=== PATIENT | female | born 1930 | race Asian ===

== ENCOUNTER 2016-10-15 18:23 | Inpatient (IN) | payer MEDICARE, OTHER ==
[~2016-10-15] VITALS: Ht 160 cm; Wt 41.3 kg
[~2016-10-15 18:23] MED LIST: GABAPENTIN300 MG ORAL; MECLIZINE HCL25 MG ORAL; VESICARE5 MG ORAL
[2016-10-15] MEDS ORDERED: COZAAR25 MG ORAL (19:14)
[2016-10-15] MEDS ORDERED: TRAMADOL HCL50 MG ORAL (19:14)
[2016-10-15] MEDS ORDERED: BENTYL10 MG ORAL (19:14)
[2016-10-15] MEDS ORDERED: ATORVASTATIN CA10 MG ORAL (19:14)
[2016-10-15] MEDS ORDERED: LYRICA75 M1 ORAL (19:14)
[2016-10-15] MEDS ORDERED: GABAPENTIN100 MG ORAL (19:14)
[2016-10-15] MEDS ORDERED: NORVASC2.5 MG ORAL (19:14)
[2016-10-15] MEDS ORDERED: ARICEPT5 MG ORAL (19:14)
[2016-10-15 19:24] LABS: RED BLOOD COUNT 3.12 M/UL (4.20-5.40); WHITE BLOOD COUNT 4.8 K/UL (4.8-10.8)
[2016-10-15 19:25] LABS: BASOPHILS % (AUTO) 1.7 % (0.0-2.0); LYMPHOCYTES % (AUTO) 33.7 % (20.0-45.0); MEAN CORPUSCULAR HEMOGLOBIN 32.5 PG (27.0-31.0); MEAN CORPUSCULAR HGB CONC 32.2 G/DL (32.0-36.0); MEAN CORPUSCULAR VOLUME 101 FL (80-99); MEAN PLATELET VOLUME 6.6 FL (6.5-10.1); MONOCYTES % (AUTO) 8.3 % (1.0-10.0); NEUTROPHILS % (AUTO) 55.3 % (45.0-75.0); PLATELET COUNT 201 K/UL (150-450); RED CELL DISTRIBUTION WIDTH 13.3 % (11.6-14.8)
[2016-10-15 20:00] LABS: TROPONIN I < 0.30 ng/mL (<=0.30)
[2016-10-15 20:03] LABS: ALANINE AMINOTRANSFERASE 22 U/L (3-33); ALBUMIN/GLOBULIN RATIO 1.9 (1.0-2.7); ANION GAP 15 (5-15); ASPARTATE AMINO TRANSFERASE 35 U/L (5-40); CARBON DIOXIDE 28 mEQ/L (20-30); CHLORIDE 102 mEQ/L (98-107); CREATININE 1.6 mg/dL (0.5-0.9); HEMOLYSIS 33; POTASSIUM 4.2 mEQ/L (3.4-4.9); SODIUM 145 mEQ/L (135-145); TOTAL PROTEIN 6.4 g/dL (6.6-8.7)
[2016-10-15 20:08] VITALS: BP 183/73
[2016-10-15 20:14] LABS: CKMB 2.5 ng/mL (< 3.8)
[2016-10-15 20:36] LABS: APPEARANCE,URINE CLEAR; KETONES,URINE NEGATIVE (NEGATIVE); LEUKOCYTE ESTERASE ,URINE NEGATIVE (NEGATIVE); NITRITE,URINE NEGATIVE (NEGATIVE); PH,URINE 8 (4.5-8.0); PROTEIN,URINE NEGATIVE (NEGATIVE); UROBILINOGEN,URINE NORMAL MG/DL (0.0-1.0)
[2016-10-15 22:16] VITALS: BP 160/72
--- NOTE | 2016-10-15 22:25 | Emergency Room Report ---
History of Present Illness General Chief Complaint: Hypertension Source: Patient, EMS Present Illness HPI Patient is an 86-year-old female who presented after having a increased headache and generalized weakness. Patient denied any recent trauma. She reported having increased facial pain. Patient reported having some cough which has not been improving. Patient had history of hypertension. She had prior brain surgery many years ago. Allergies: Coded Allergies: NO KNOWN DRUG ALLERGIES (Unverified Allergy, Unknown, 04/03/15) Patient History Past Medical History: see triage record Reviewed Nursing Documentation: PMH: Agreed, PSxH: Agreed Nursing Documentation-PMH Past Medical History: No History, Except For Hx Hypertension: Yes Hx Diabetes: No - NEUROPATHY Hx Cancer: No Hx Neurological Problems: No - Brain Surgery in 1999 Hx Dizziness: Yes Hx Neurologic Surgery: Yes - brain tumer 20 years ago Review of Systems All Other Systems: negative except mentioned in HPI Physical Exam Vital Signs Date Time Temp Pulse Resp B/P Pulse Ox O2 Delivery O2 Flow Rate FiO2 10/15/16 18:13 98.8 90 20 180/90 100 Room Air Sp02 EP Interpretation: reviewed, normal General Appearance: normal inspection, well appearing, no apparent distress, alert, GCS 15, thin, Chronically Ill Head: atraumatic ENT: normal ENT inspection, hearing grossly normal, normal voice Neck: normal inspection, full range of motion, supple, no bony tend Respiratory: normal inspection, lungs clear, normal breath sounds, no respiratory distress, no retraction, no wheezing Cardiovascular #1: regular rate, rhythm, no edema Gastrointestinal: normal inspection, normal bowel sounds, non tender, soft, no guarding, no hernia Genitourinary: no CVA tenderness Musculoskeletal: normal inspection, back normal, normal range of motion Neurologic: normal inspection, alert, oriented x3, responsive, imaging aide III-XII nml as tested, speech normal Psychiatric: normal inspection, judgement/insight normal, mood/affect normal Skin: normal inspection, normal color, no rash Medical Decision Making Diagnostic Impression: Primary Impression: Generalized weakness Additional Impression: Hypertension ER Course Patient presented for generalized weakness. Differential diagnosis included was not limited to anemia, urinary tract infection, electrolyte abnormality, hypothyroidism, myocardial infarction, myasthenia gravis, dehydration, among others. Because of complexity of patient's case laboratory testing and imaging studies were ordered. Chest x-ray one view interpreted by me showed normal cardiac size without evident infiltrate. There is some aortic calcifications noted. CT the head read by radiology showed post surgical changes without evident acute stroke or hemorrhage.The patient was noted to have continued generalized weakness. Patient was given Lasix. Dr. Trae Gregg was contacted for inpatient management Labs Test 10/15/16 19:16 10/15/16 20:13 White Blood Count 4.8 K/UL (4.8-10.8) Red Blood Count 3.12 M/UL (4.20-5.40) Hemoglobin 10.1 G/DL (12.0-16.0) Hematocrit 31.4 % (37.0-47.0) Mean Corpuscular Volume 101 FL (80-99) Mean Corpuscular Hemoglobin 32.5 PG (27.0-31.0) Mean Corpuscular Hemoglobin Concent 32.2 G/DL (32.0-36.0) Red Cell Distribution Width 13.3 % (11.6-14.8) Platelet Count 201 K/UL (150-450) Mean Platelet Volume 6.6 FL (6.5-10.1) Neutrophils (%) (Auto) 55.3 % (45.0-75.0) Lymphocytes (%) (Auto) 33.7 % (20.0-45.0) Monocytes (%) (Auto) 8.3 % (1.0-10.0) Eosinophils (%) (Auto) 1.0 % (0.0-3.0) Basophils (%) (Auto) 1.7 % (0.0-2.0) Sodium Level 145 mEQ/L (135-145) Potassium Level 4.2 mEQ/L (3.4-4.9) Chloride Level 102 mEQ/L (98-107) Carbon Dioxide Level 28 mEQ/L (20-30) Anion Gap 15 (5-15) Blood Urea Nitrogen 29 mg/dL (7-23) Creatinine 1.6 mg/dL (0.5-0.9) Estimat Glomerular Filtration Rate mL/min (>60) Glucose Level 96 mg/dL (74-106) Lactic Acid Level 1.00 mmol/L (0.66-2.22) Calcium Level 9.0 mg/dL (8.6-10.2) Total Bilirubin < 0.2 mg/dL (0.0-1.2) Aspartate Amino Transf (AST/SGOT) 35 U/L (5-40) Alanine Aminotransferase (ALT/SGPT) 22 U/L (3-33) Alkaline Phosphatase 97 U/L (35-104) Total Creatine Kinase 156 U/L (26-140) Creatine Kinase MB 2.5 ng/mL (< 3.8) Creatine Kinase MB Relative Index 1.6 Troponin I < 0.30 ng/mL (<=0.30) Pro-B-Type Natriuretic Peptide 751 pg/mL (0-450) Total Protein 6.4 g/dL (6.6-8.7) Albumin 4.2 g/dL (3.5-5.2) Globulin 2.2 g/dL Albumin/Globulin Ratio 1.9 (1.0-2.7) Urine Color Pale yellow Urine Appearance Clear Urine pH 8 (4.5-8.0) Urine Specific [place] 1.010 (1.005-1.035) Urine Protein Negative (NEGATIVE) Urine Glucose (UA) Negative (NEGATIVE) Urine Ketones Negative (NEGATIVE) Urine Occult Blood Negative (NEGATIVE) Urine Nitrite Negative (NEGATIVE) Urine Bilirubin Negative (NEGATIVE) Urine Urobilinogen Normal MG/DL (0.0-1.0) Urine Leukocyte Esterase Negative (NEGATIVE) EKG Diagnostic Results Rate: normal Rhythm: NSR ST Segments: no acute changes Rhythm Strip Diag. Results EP Interpretation: yes Rhythm: NSR, no PVC's, no ectopy Chest X-Ray Diagnostic Results EP Interpretation: Yes Findings: no consolidation, no effusion, no pneumothorax, no acute cardiopulmonary disease Number of Views: 1 Last Vital Signs Date Time Temp Pulse Resp B/P Pulse Ox O2 Delivery O2 Flow Rate FiO2 10/15/16 20:08 68 13 183/73 100 Room Air 10/15/16 18:13 98.8 Status: unchanged Disposition: DISC/XFER TO A [facility] Condition: Serious Referrals: NON PHYSICIAN (PCP) Feliciano Brown Oct 15, 2016 22:25
[2016-10-15] MEDS ORDERED: Morphine Sulfate 2mg/ml Inj IVP PRN (23:00)
[2016-10-15] MEDS ORDERED: Promethazine/Codeine 5ml UD ORAL PRN (23:00)
[2016-10-15] MEDS ORDERED: Mylanta II UD 30ml ORAL PRN (23:00)
[2016-10-15] MEDS ORDERED: DuoNeb 0.5-3(2.5)mg/3ml neb HHN PRN (23:00)
[2016-10-15] MEDS ORDERED: LORazepam Inj 2mg/ml 1ml IV PRN (23:00)
[2016-10-15] MEDS ORDERED: Nitroglycerin Subl 0.4mg tab (Bottle Of 25) SL PRN (23:00)
[2016-10-15] MEDS ORDERED: Miralax 17gm pkt ORAL PRN (23:00)
[2016-10-15] MEDS: D5 1/2NS 1,000 ML IV SCH (23:33)
[2016-10-15 23:40] VITALS: BP 133/55
[2016-10-16] VITALS (11 sets, daily range): BP systolic 99–167; BP diastolic 42–89
[2016-10-16] MEDS: Meclizine 25mg tab ORAL SCH ×3 (02:50→22:02)
[2016-10-16 06:08] LABS: BASOPHILS % (AUTO) 1.4 % (0.0-2.0); EOSINOPHILS % (AUTO) 1.2 % (0.0-3.0); MEAN CORPUSCULAR HEMOGLOBIN 31.8 PG (27.0-31.0); MEAN CORPUSCULAR HGB CONC 31.6 G/DL (32.0-36.0); MEAN CORPUSCULAR VOLUME 100 FL (80-99); MEAN PLATELET VOLUME 6.8 FL (6.5-10.1); MONOCYTES % (AUTO) 10.4 % (1.0-10.0); PLATELET COUNT 224 K/UL (150-450); RED BLOOD COUNT 3.48 M/UL (4.20-5.40); WHITE BLOOD COUNT 4.2 K/UL (4.8-10.8)
[2016-10-16 06:18] LABS: INR 0.9 (0.9-1.1); PROTHROMBIN TIME 9.6 SEC (9.30-11.50)
[2016-10-16 06:31] LABS: ALANINE AMINOTRANSFERASE 20 U/L (3-33); ALBUMIN/GLOBULIN RATIO 1.8 (1.0-2.7); ANION GAP 14 (5-15); ASPARTATE AMINO TRANSFERASE 29 U/L (5-40); CARBON DIOXIDE 30 mEQ/L (20-30); CHLORIDE 98 mEQ/L (98-107); CHOLESTEROL 207 mg/dL (< 200); CHOLESTEROL/HDL RATIO 2.1 (3.3-4.4); CREATININE 1.3 mg/dL (0.5-0.9); HEMOLYSIS 4; LDL CHOLESTEROL (CALC.) 95 mg/dL (60-99); POTASSIUM 3.3 mEQ/L (3.4-4.9); SODIUM 142 mEQ/L (135-145); TOTAL PROTEIN 6.8 g/dL (6.6-8.7)
--- NOTE | 2016-10-16 09:50 | Diagnostic Imaging Report ---
Indication: Headache, high blood pressure Technique: spiral acquisitions obtained through the brain. Angled axial and coronal 5 x 5 mm slices were reconstructed. No IV contrast utilized. Radiation dose was minimized using automated exposure control Total dose length product 1238 mGycm. CTDIvol(s) 70 mGy Comparison: 04/03/2015 FINDINGS: No acute hemorrhage or edema. No mass effect or midline shift. There is age-related enlargement of the ventricles and extra axial CSF spaces. There is periventricular deep white matter ischemic change. There is a right temporal craniotomy/craniectomy defect. Some encephalomalacia of the left temporal tip is seen deep to this. Normal florez-white differentiation. There is evidence of prior bilateral cataract surgery. Visualized sinuses are unremarkable. There is no significant change from previous exam IMPRESSION: Chronic and age-related changes. Negative for acute intracranial bleed or mass effect Right temporal craniotomy/craniectomy with underlying encephalomalacia. Correlate with surgical history This agrees with the preliminary interpretation provided overnight by Dr. Fournier The CT scanner at [facility] is accredited by the [employer] and the scans are performed using protocols designed to limit radiation exposure to as low as reasonably achievable to attain images of sufficient resolution adequate for diagnostic evaluation
--- NOTE | 2016-10-16 10:08 | Diagnostic Imaging Report ---
Indication: SOB Technique: One view of the chest Comparison: 04/03/2015 Findings: No acute infiltrates, effusions, or congestion. Tortuous calcified aorta. Normal heart size. Upper mediastinum unremarkable. No significant change Impression: No acute process.
[2016-10-16] MEDS ORDERED: Heparin 5000 units/ml inj ONE (10:16)
[2016-10-16] MEDS ORDERED: Meclizine 25mg tab ONE (10:16)
[2016-10-16] MEDS: Heparin 5000 units/ml inj SUBQ SCH ×2 (10:26→22:04)
--- NOTE | 2016-10-16 12:37 | Consultation ---
Consult Note Consult Note NEUROLOGY CONSULTATION: Full note dictated # Ms. Maurizio Johnson is an 86 year old right handed Mongolian lady who was admitted to the hospital for headaches, weakness, numbness in the feet, and an elevated BP. ON EXAM: C-PS/Trap spasm. Problems with orientation, memory, VSF, HCF Left VII central Left hemiparesis. Globally decreased reflexes with left brisker. 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 Numbness in feet unexplained. REC: Flexeril 10 mg q HS x 5-7 days. BP control W/U for treatable neuropathy Mobilize Judy Esquivel M.D., M.S.P.Kellee. JUDY ESQUIVEL Oct 16, 2016 12:37
--- NOTE | 2016-10-16 17:58 | Consultation ---
DATE OF CONSULTATION: 10/16/2016 NEUROLOGY CONSULTATION CONSULTING PHYSICIAN: Gato Esquivel M.D. REQUESTING PHYSICIAN: Trae Gregg M.D. HISTORY: Ms. Mauriizo Johnson is an 86-year-old, right-handed, [place]ian lady, who does have a past history of hypertension and a brain abscess that had to be taken care of surgically numerous years ago in [place]. She was functioning relatively well until a few months ago when she started to have daily headaches. The headaches are predominantly in the bifrontal area and sometimes they spread to the entire scalp, they occur anytime of the day but are more common in the later part of the day then beginning of the day. She denies any associated neurological symptoms with the headaches. For the last few days, she has also been feeling generally weak. In addition, she has been complaining of numbness in the feet. She was thus brought into the [facility] emergency room and was noted to have an elevated blood pressure and has been admitted for further management. PAST MEDICAL HISTORY: Significant for brain abscess numerous years ago that was treated surgically, high blood pressure for many years. FAMILY HISTORY: Nothing significant. PERSONAL HISTORY: Home: She lives with family. 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 Habits: She denies use of alcohol, tobacco, or illicit drugs. PRESENT MEDICATIONS: Include amlodipine, meclizine, heparin for DVT prophylaxis, DuoNeb, Tylenol p.r.n., morphine as needed, MiraLAX as needed, Zofran as needed, Ativan as needed, Restoril as needed, nitroglycerin as needed, clonidine as needed, Phenergan and codeine oral cough syrup as needed, Lasix which she got a single dose. PHYSICAL EXAMINATION: GENERAL: She is a well-developed, lean, Bulgarian lady, lying in bed, in no acute distress. VITAL SIGNS: Pulse 60 per minute, blood pressure 159/70 mmHg, respirations 16 per minute, temperature 97.7 degrees Fahrenheit. HEAD: Head normocephalic with right frontotemporal craniotomy scar. NECK: No neck rigidity was observed. She did have a grade 1/4 cervical paraspinal muscle and trapezius spasm. EENT: Examination benign except for bilateral pseudophakia. NEUROLOGICAL EXAMINATION: MENTAL STATUS EXAMINATION: She was alert and awake. She was oriented to self, hospital, and October. She did not know the name of the hospital, date, or year. She was able to recall 3/3 words immediately after 1 minute and after 3 minutes. She was able to remember presidents Trump and Obama but could not remember presidents prior to that. Her mathematical skills were impaired. Her visuospatial function was also impaired. SPEECH: She had no dysarthria. LANGUAGE: She had no aphasia in Bulgarian as per the nurse who was interpreting for her. CRANIAL NERVE EXAMINATION: II: Visual garvey were intact to confrontation testing. III, IV & : The external ocular movements were full. Pupils were 5 x 6 millimeters and irregular and did not react to light. V: She had normal facial sensations and the temporales, masseters, and pterygoids functioned normally. VII: She had left VII central facial paresis. VIII: She was able to hear well bilaterally and had no nystagmus. IX: The palate moved symmetrically on phonation. X: She had no hoarseness of voice. XI: The sternocleidomastoids and trapezii functioned normally. XII: The tongue was in the midline without any fasciculations or atrophy. MOTOR SYSTEM: The tone was normal in all four extremities. Examination of muscle mass revealed no focal wasting. Examination of power revealed grade 5/5 power except for grade 4+/5 power in the left finger extensors and iliopsoas. SENSORY EXAMINATION: She had intact sensations to pinprick, light touch, and graphesthesia however she complained of subjective intense sensation on her left side. REFLEXES: Trace+ on the right and 1+ on the left in the biceps, triceps, brachioradialis, and knees and 0 at both ankles. The plantar responses were flexor bilaterally. STANCE: She stood up with support. GAIT: She took a few steps with support. DIAGNOSTIC IMPRESSION: 1. Ms. Maurizio Johnson is an 86-year-old, right-handed, Bulgarian lady, who does have a past history of a brain abscess that was treated surgically numerous years ago, high blood pressure, and right hip fracture that was treated with surgical repair, who for the last 2 months has been having frequent headaches and for the last few days has been feeling unwell and ill. She was thus hospitalized and was discovered to have a significantly elevated blood pressure but pressure is now better controlled. 2. On neurological examination, at this time, she does have problems with orientation, recent and remote memory, visuospatial function, and higher cognitive function. She also has mild left hemiparesis involving the face, upper and lower extremities. The deep tendon reflexes are globally diminished though brisker on the left side than on the right. She in addition has cervical paraspinal muscle and trapezius spasm. 3. The patient's history and neurological examination are most compatible with muscle contraction Headaches. 4. The numbness in her feet is unexplained at this point in time, but may be related to a neuropathic process as she does demonstrate globally diminished reflexes. 5. The patient's generalized weakness is also still unexplained at this point in time. RECOMMENDATIONS: 1. The patient should be worked up thoroughly for treatable causes of neuropathy and weakness with CBC, chemistry panel, B12 level, folate level, vitamin D level, RPR, glycohemoglobin, Westergren sedimentation rate, TSH, and hemoglobin A1c. 2. She will be started on Flexeril 10 mg at bedtime for the next few nights to help her with the muscle contraction headaches. 3. The patient's blood pressure should be brought down into the physiological range. 4. Depending on how the patient favors over the next day or so further recommendations will be given. Thank you for entrusting me with the care of Ms. Johnson. I shall follow her with you. Gato Esquivel M.D., M.S.P.H. DR: Ras JOB#: [id number] [facility] HOSPITALAlesia
[2016-10-16] MEDS: Cyclobenzaprine 10mg Tab ORAL SCH (22:05)
[2016-10-16] MEDS: D5 1/2NS 1,000 ML IV SCH (22:17)
--- NOTE | 2016-10-16 22:27 | Consultation ---
History of Present Illness General Date patient seen: Oct 16, 2016 Chief Complaint: headache elevated blood pressure Reason for Consultation: accelerated hypertension poorly controlled Present Illness HPI 86 yo female with pmhx HTN and heart disease, craniotomy presenting to [facility] with co headache. While being evaluated in the ER patient was found to be hypertensive with systolic recorded at once as high 160 systolically. I was asked to consult on the case to help better manage and control this patients blood pressure from internal medicine perspective. The patient will be given clonidine 0.1 mg q 6 hour prn systolic BP more than 160 immediately and a full evaluation is pending. Neurology to evaluate to investigate the patients complaint of numbness and tingling feelings in the extremities bilaterally. No complaint of focality or seizure or syncope. Speech not slurred no complaints of unilateral facial drooping or one sided weakness. Allergies: Coded Allergies: NO KNOWN DRUG ALLERGIES (Unverified Allergy, Unknown, 04/03/15) Medication History Scheduled Amlodipine Besylate* (Amlodipine Besylate*), 5 MG ORAL DAILY, (Reported) Atorvastatin Calcium* (Lipitor*), Unknown Dose ORAL BEDTIME, (Reported) Atorvastatin Calcium* (Atorvastatin Calcium*), 10 MG ORAL BEDTIME, (Reported) Clonidine Hcl (Clonidine Hcl), 0.1 MG PO EVERY 4 HOURS, (Reported) Ergocalciferol (Vitamin D2)* (Vitamin D*), 50,000 UNIT ORAL ONCE A WEEK Heparin Sod (Porcine) (Heparin Sodium*), 5,000 UNITS SUBQ EVERY 12 HOURS, ( Reported) Meclizine Hcl (Meclizine Hcl), 25 MG ORAL THREE TIMES A DAY, (Reported) Morphine Sulfate/0.9% NaCl/Pf (Morphine 2 mg/2 ml-0.9% NaCl), 2 MG IV EVERY 4 HOURS, (Reported) Polyethylene Glycol 3350* (Miralax*), 17 GM ORAL DAILY, (Reported) Temazepam (Temazepam*), 15 MG ORAL BEDTIME, (Reported) Scheduled PRN Acetaminophen* (Tylenol Extra Strength*), 650 MG ORAL EVERY 4 HOURS PRN for Fever/Headache/Mild Pain, (Reported) Amlodipine Besylate* (Amlodipine Besylate*), 5 MG ORAL DAILY PRN for For High Blood Pressure, (Reported) Codeine/Promethazine Hcl* (Promethazine-Codeine Syrup*), 5 ML ORAL Q4H PRN for For Cough, (Reported) Cyclobenzaprine Hcl* (Flexeril*), 10 MG ORAL BEDTIME PRN for Insomnia, (Reported ) Heparin Sodium,Porcine/Pf (Heparin Sod 5,000 Unit/ 0.5 Ml), 5,000 UNIT SQ for micheline, (Reported) Ipratropium [place] 0.5MG/2.5ML (Ipratropium [place] 0.5MG/2.5ML), 0.5 MG HHN Q4HR PRN for Shortness of Breath, (Reported) Ondansetron (Zofran), 4 MG ORAL Q6H PRN for Nausea & Vomiting, (Reported) Miscellaneous Medications Acetaminophen (Acetaminophen), 325 MG PO, (Reported) Al Hydroxide/mg Hydroxide (Mag-Al Plus Suspension), 30 ML ORAL, (Reported) Clonidine HCl (Clonidine HCl), 0.1 MG GT, (Reported) Nitroglycerin (Nitroglycerin), 0.4 MG SL, (Reported) Patient History Healthcare decision maker Resuscitation status Advanced Directive on File Review of Systems Constitutional: Reports: malaise, weakness Neurological: Reports: headache, tingling Physical Exam General Appearance: no apparent distress Lines, tubes and drains: peripheral HEENT: anicteric, PERRL Neck: non-tender, normal alignment, supple Respiratory/Chest: no respiratory distress, no accessory muscle use Cardiovascular/Chest: normal rate, regular rhythm Abdomen: normal bowel sounds, non tender, soft, no organomegaly Genitourinary/Rectal: normal genital exam, normal rectal exam Extremities: normal range of motion, non-tender Skin Exam: normal pigmentation, warm/dry 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 normal, responsive, sensory deficit, disoriented Last 24 Hour Vital Signs Date Time Temp Pulse Resp B/P Pulse Ox O2 Delivery O2 Flow Rate FiO2 10/16/16 22:14 98.2 63 15 99/42 98 Room Air 10/16/16 18:51 60 15 134/59 99 Room Air 10/16/16 16:04 55 15 138/61 99 Room Air 10/16/16 13:11 70 15 143/58 99 Room Air 10/16/16 11:17 60 15 159/70 94 Room Air 10/16/16 10:24 59 159/70 10/16/16 09:30 98.3 61 16 166/85 97 Room Air 10/16/16 07:15 97.7 67 15 163/77 94 Room Air 10/16/16 07:15 67 15 Room Air 10/16/16 06:30 56 15 167/80 97 Room Air 10/16/16 04:30 98.4 64 12 163/89 100 Room Air 10/16/16 01:50 66 16 145/60 100 Room Air 10/15/16 23:40 98.0 66 17 133/55 99 Room Air Intake and Output 10/15/16 10/16/16 19:00 07:00 Output Total 50 ml Balance -50 ml Output Urine Total 50 ml # Voids 4 Laboratory Tests Test 10/16/16 05:50 White Blood Count 4.2 K/UL (4.8-10.8) L Red Blood Count 3.48 M/UL (4.20-5.40) L Hemoglobin 11.1 G/DL (12.0-16.0) L Hematocrit 35.0 % (37.0-47.0) L Mean Corpuscular Volume 100 FL (80-99) H Mean Corpuscular Hemoglobin 31.8 PG (27.0-31.0) H Mean Corpuscular Hemoglobin Concent 31.6 G/DL (32.0-36.0) L Red Cell Distribution Width 13.0 % (11.6-14.8) Platelet Count 224 K/UL (150-450) Mean Platelet Volume 6.8 FL (6.5-10.1) Neutrophils (%) (Auto) 61.0 % (45.0-75.0) Lymphocytes (%) (Auto) 26.0 % (20.0-45.0) Monocytes (%) (Auto) 10.4 % (1.0-10.0) H Eosinophils (%) (Auto) 1.2 % (0.0-3.0) Basophils (%) (Auto) 1.4 % (0.0-2.0) Prothrombin Time 9.6 SEC (9.30-11.50) Prothromb Time International Ratio 0.9 (0.9-1.1) Activated Partial Thromboplast Time 24 SEC (23-33) Sodium Level 142 mEQ/L (135-145) Potassium Level 3.3 mEQ/L (3.4-4.9) L Chloride Level 98 mEQ/L (98-107) Carbon Dioxide Level 30 mEQ/L (20-30) Anion Gap 14 (5-15) Blood Urea Nitrogen 26 mg/dL (7-23) H Creatinine 1.3 mg/dL (0.5-0.9) H Estimat Glomerular Filtration Rate mL/min (>60) Glucose Level 102 mg/dL (74-106) Calcium Level 9.0 mg/dL (8.6-10.2) Total Bilirubin 0.2 mg/dL (0.0-1.2) Aspartate Amino Transf (AST/SGOT) 29 U/L (5-40) Alanine Aminotransferase (ALT/SGPT) 20 U/L (3-33) Alkaline Phosphatase 84 U/L (35-104) Total Protein 6.8 g/dL (6.6-8.7) Albumin 4.4 g/dL (3.5-5.2) Globulin 2.4 g/dL Albumin/Globulin Ratio 1.8 (1.0-2.7) Triglycerides Level 73 mg/dL (< 150) Cholesterol Level 207 mg/dL (< 200) H LDL Cholesterol 95 mg/dL (60-99) HDL Cholesterol 97 mg/dL (> 60) H Cholesterol/HDL Ratio 2.1 (3.3-4.4) L Thyroid Stimulating Hormone (TSH) 3.150 uIU/mL (0.300-4.500) Height (Feet): 5 Height (Inches): 3.00 Weight (Pounds): 110 Medications Current Medications Medications (Trade) Dose Ordered Sig/Micheline Route PRN Reason Start Time Stop Time Status Last Admin Dose Admin Acetaminophen (Tylenol) 650 mg Q4H PRN ORAL fever 10/15/16 23:00 11/14/16 22:59 Al Hydroxide/Mg Hydroxide (Mylanta II) 30 ml Q6H PRN ORAL dyspepsia 10/15/16 23:00 11/14/16 22:59 Albuterol/ Ipratropium (DuoNeb 0.5-3(2.5)mg/3ml) 3 ml EVERY 4 HOURS PRN HHN Shortness of Breath 10/15/16 23:00 10/20/16 22:59 Amlodipine Besylate (Norvasc) 5 mg DAILY ORAL 10/16/16 09:00 11/15/16 08:59 10/16/16 10:24 Clonidine HCl (Catapres) 0.1 mg Q4H PRN ORAL For High Blood Pressure 10/15/16 23:00 11/14/16 22:59 Cyclobenzaprine HCl (Flexeril) 10 mg BEDTIME ORAL 10/16/16 21:00 11/15/16 20:59 10/16/16 22:05 Dextrose (Dextrose 50%) STAT PRN IV Hypoglycemia 10/15/16 23:00 11/14/16 22:59 Dextrose/Sodium Chloride (D5 0.45% NS) 1,000 ml @ 50 mls/hr Q20H IV 10/15/16 17:50 11/14/16 17:49 10/16/16 22:17 Heparin Sodium (Porcine) (Heparin 5000 units/ml) 5,000 units EVERY 12 HOURS SUBQ 10/16/16 09:00 11/15/16 08:59 10/16/16 22:04 Lorazepam (Ativan 2mg/ml 1ml) 0.5 mg Q4H PRN IV For Anxiety 10/15/16 23:00 10/22/16 22:59 Meclizine HCl 25 mg 25 mg THREE TIMES A DAY ORAL 10/16/16 09:00 11/15/16 08:59 10/16/16 22:02 Morphine Sulfate (Morphine Sulfate) 1 mg EVERY 4 HOURS PRN IVP For Pain 7-10 10/15/16 23:00 10/22/16 22:59 Nitroglycerin (Ntg) 0.4 mg Q5M X 3 DOSES PRN SL Prn Chest Pain 10/15/16 23:00 11/14/16 22:59 Ondansetron HCl (Zofran) 4 mg Q6H PRN IVP Nausea & Vomiting 10/15/16 23:00 11/14/16 22:59 Polyethylene Glycol (Miralax) 17 gm HSPRN PRN ORAL Constipation 10/15/16 23:00 11/14/16 22:59 Promethazine HCl/ Codeine (Phenergan with Codeine) 5 ml Q4H PRN ORAL For Cough 10/15/16 23:00 11/14/16 22:59 Temazepam (Restoril) 15 mg HSPRN PRN ORAL Insomnia 10/15/16 23:00 10/22/16 22:59 Assessment/Plan Status: stable, progressing Assessment/Plan Assessment/Plan Cephaliagia Rule out acute CVA vs TIA muscle contraction headaches? HTN urgency hx of brain abscess with craniectomy neuropathy dementia generalized weakness complex cystic mass R ovarian region , r/o neoplasm PLAN OF CARE CT head neuro follows BP management with CCB workup for treatable causes of neuropathy pain management muscle relaxant PT/OT fall precaution DUSTIN RODRIGUEZ Oct 16, 2016 22:27
[2016-10-17] VITALS (9 sets, daily range): BP systolic 115–163; BP diastolic 58–74
--- NOTE | 2016-10-17 01:48 | Consultation ---
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 The patient has been complaining of generalized weakness during the evaluation. The patient is complaining of weakness, headache, numbness as well as impairment of cognition. She does endorse impairment of concentration, memory, attention, and also has anxiety and depressed mood. She denies any anhedonia. No sleeping issues. PAST PSYCHIATRIC HISTORY: She has a history of anxiety disorder and has been treated with benzodiazepines as well as taking medication in the past. PAST MEDICAL HISTORY: Significant for brain abscess and blood pressure. ALLERGIES: No known drug allergies. FAMILY HISTORY: Noncontributory. SUBSTANCE ABUSE HISTORY: No history of illicit drug use or alcohol. Nonsmoker. SOCIAL HISTORY: The patient lives at home with family. 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 MENTAL STATUS EXAMINATION: She is alert and oriented to self and place. Mood is anxious and depressed. Affect is constricted and congruent with mood. Thought process is concrete. Thought content is negative for suicidal or homicidal ideation. No delusions. Insight and judgment are fair. Memory is impaired. ASSESSMENT: AXIS I: Dementia, mild to moderate. Anxiety disorder. AXIS II: Deferred. AXIS III: High blood pressure. AXIS IV: Low. AXIS V: Global assessment of functioning is 65. PLAN: 1. The patient was adamant against being restarted on antidepressants, which could target her anxiety. 2. She is currently on Restoril for insomnia as well as Ativan p.r.n. for anxiety. Jet Garza M.D. DR: ADELAIDA JOB#: [id number] CC:
[2016-10-17] MEDS ORDERED: ASPIRIN81 M3 PO (06:52)
[2016-10-17] MEDS ORDERED: ACETAMINOP500 MG/51 ORAL (07:12)
[2016-10-17] MEDS ORDERED: DOCUSATE SODIU250 MG ORAL (07:12)
[2016-10-17] MEDS ORDERED: BYSTOLIC2.5 MG ORAL (07:12)
[2016-10-17] MEDS ORDERED: AMBIEN5 MG ORAL (07:12)
[2016-10-17] MEDS ORDERED: TRAVATAN Z5 ML OP (07:12)
[2016-10-17] MEDS ORDERED: ZOFRAN8 MG ORAL (07:12)
[2016-10-17] MEDS ORDERED: FUROSEMIDE20 M1 ORAL (07:12)
[2016-10-17] MEDS ORDERED: COZAAR50 MG ORAL (07:12)
[2016-10-17] MEDS ORDERED: SENNO8.6 MG ORAL (07:12)
[2016-10-17] MEDS: Meclizine 25mg tab ORAL SCH ×3 (09:04→18:00)
[2016-10-17] MEDS: Heparin 5000 units/ml inj SUBQ SCH ×2 (09:08→21:40)
--- NOTE | 2016-10-17 09:19 | Pulmonology Progress Note ---
Assessment/Plan Assessment/Plan ASSESSMENT muscle contraction headaches HTN urgency hx of brain abscess with craniectomy neuropathy dementia generalized weakness PLAN OF CARE MS floor CT head no acute changes, + evidence of R temporal craniectomy neuro follows per neuro - patient likely has muscle contraction headache BP management with CCB, improved workup for treatable causes of neuropathy -as per neuro pain management muscle relaxant PT/OT fall precaution lipid panel with elevated TC, add low dose Lipitor diet : low fat low cholesterol cardiac gentle IVF, monitor renal parameters, lytes, creat trending down, possibly ARF 2 to dehydration check renal US CXR negative venous Duplex BLE negative psych follows psych meds as per psychiatrist DVT prophylaxis case discussed and evaluated by supervising physician Subjective Allergies: Coded Allergies: NO KNOWN DRUG ALLERGIES (Unverified Allergy, Unknown, 04/03/15) Subjective no signs of distress, denies headaches Objective Last 24 Hour Vital Signs Date Time Temp Pulse Resp B/P Pulse Ox O2 Delivery O2 Flow Rate FiO2 10/17/16 07:46 97.9 58 18 115/60 95 Room Air 10/17/16 04:00 97.0 58 18 129/70 99 Room Air 10/17/16 03:00 151/66 10/17/16 02:50 97.0 61 18 163/74 99 Room Air 10/17/16 02:45 97.9 61 18 124/59 96 Room Air 10/17/16 02:30 97.9 61 18 124/59 96 Room Air 10/17/16 01:35 62 17 129/60 99 Room Air 10/16/16 23:20 67 17 113/51 100 Room Air 10/16/16 23:04 98.2 10/16/16 22:14 98.2 63 15 99/42 98 Room Air 10/16/16 18:51 60 15 134/59 99 Room Air 10/16/16 16:04 55 15 138/61 99 Room Air 10/16/16 13:11 70 15 143/58 99 Room Air 10/16/16 11:17 60 15 159/70 94 Room Air 10/16/16 10:24 59 159/70 10/16/16 09:30 98.3 61 16 166/85 97 Room Air Intake and Output 10/16/16 10/17/16 19:00 07:00 Intake Total 110 ml Balance 110 ml Intake Oral 60 ml IV Total 50 ml # Voids 1 General Appearance: no acute distress, cachetic HEENT: anicteric, mucous membranes moist, other - R temporal craniectomy defect Respiratory/Chest: lungs clear, no respiratory distress, no accessory muscle use Cardiovascular: normal rate, regular rhythm Abdomen: normal bowel sounds, soft, non tender Genitourinary: normal external genitalia Extremities: no edema, pedal pulses normal Neurologic/Psychiatric: alert - Icelandic speaking only, responsive, forgetful , other - mild left hemiparesis, gobally diminished DTR, numbness bialteral foot Musculoskeletal: atrophy - BLE Microbiology Date/Time Source Procedure Growth Status 10/15/16 20:20 Blood Blood Culture - Preliminary NO GROWTH AFTER 24 HOURS Resulted 10/15/16 20:10 Blood Blood Culture - Preliminary NO GROWTH AFTER 24 HOURS Resulted Current Medications Medications (Trade) Dose Ordered Sig/Micheline Route PRN Reason Start Time Stop Time Status Last Admin Dose Admin Acetaminophen (Tylenol) 650 mg Q4H PRN ORAL fever 10/15/16 23:00 11/14/16 22:59 Al Hydroxide/Mg Hydroxide (Mylanta II) 30 ml Q6H PRN ORAL dyspepsia 10/15/16 23:00 11/14/16 22:59 Albuterol/ Ipratropium (DuoNeb 0.5-3(2.5)mg/3ml) 3 ml EVERY 4 HOURS PRN HHN Shortness of Breath 10/15/16 23:00 10/20/16 22:59 Amlodipine Besylate (Norvasc) 5 mg DAILY ORAL 10/16/16 09:00 11/15/16 08:59 10/16/16 10:24 Clonidine HCl (Catapres) 0.1 mg Q4H PRN ORAL For High Blood Pressure 10/15/16 23:00 11/14/16 22:59 Cyclobenzaprine HCl (Flexeril) 10 mg BEDTIME ORAL 10/16/16 21:00 11/15/16 20:59 10/16/16 22:05 Dextrose (Dextrose 50%) STAT PRN IV Hypoglycemia 10/15/16 23:00 11/14/16 22:59 Dextrose/Sodium Chloride (D5 0.45% NS) 1,000 ml @ 50 mls/hr Q20H IV 10/15/16 17:50 11/14/16 17:49 10/16/16 22:17 Heparin Sodium (Porcine) (Heparin 5000 units/ml) 5,000 units EVERY 12 HOURS SUBQ 10/16/16 09:00 11/15/16 08:59 10/16/16 22:04 Lorazepam (Ativan 2mg/ml 1ml) 0.5 mg Q4H PRN IV For Anxiety 10/15/16 23:00 10/22/16 22:59 Meclizine HCl 25 mg 25 mg THREE TIMES A DAY ORAL 10/16/16 09:00 11/15/16 08:59 10/16/16 22:02 Morphine Sulfate (Morphine Sulfate) 1 mg EVERY 4 HOURS PRN IVP For Pain 7-10 10/15/16 23:00 10/22/16 22:59 10/17/16 08:59 Nitroglycerin (Ntg) 0.4 mg Q5M X 3 DOSES PRN SL Prn Chest Pain 10/15/16 23:00 11/14/16 22:59 Ondansetron HCl (Zofran) 4 mg Q6H PRN IVP Nausea & Vomiting 10/15/16 23:00 11/14/16 22:59 Polyethylene Glycol (Miralax) 17 gm HSPRN PRN ORAL Constipation 10/15/16 23:00 11/14/16 22:59 Promethazine HCl/ Codeine (Phenergan with Codeine) 5 ml Q4H PRN ORAL For Cough 10/15/16 23:00 11/14/16 22:59 Temazepam (Restoril) 15 mg HSPRN PRN ORAL Insomnia 10/15/16 23:00 10/22/16 22:59 Ismael BurgosLisa lee NP Oct 17, 2016 09:19
[2016-10-17] MEDS: D5 1/2NS 1,000 ML IV SCH (11:21)
[2016-10-17 12:24] LABS: HEMOGLOBIN A1C 5.1 % (< 6.0)
--- NOTE | 2016-10-17 14:02 | Neurology Progress Note ---
Interim History Interim History Interim History Ms. Johnson feels better. The headache is better. She also feels stronger. She denies any new neurologic symptoms. Review of Systems Neuro Review of Systems Benign. Objective Physical Exam Last Vital Signs Date Time Temp Pulse Resp B/P Pulse Ox O2 Delivery O2 Flow Rate FiO2 10/17/16 12:33 97.7 62 18 134/64 99 Room Air Laboratory Tests Test 10/17/16 11:00 10/17/16 12:30 Hemoglobin A1c 5.1 % (< 6.0) Total Protein (PEP) Pending Albumin (PEP) Pending Globulin (PEP) Pending Albumin/Globulin Ratio Pending [id number] Pending [id number] Pending Beta Globulins Pending Beta Gamma Globulin Pending PEP Abnormal Protein Bands Pending Protein Electrophoresis Interpret Pending Vitamin B12 Level 545 pg/mL ([id number]) Vitamin D 25-Hydroxy Pending 25-Hydroxy Vitamin D2 Pending 25-Hydroxy Vitamin D3 Pending Folate Pending Rapid Plasma Reagin Pending Erythrocyte Sedimentation Rate Pending Neurologic Exam Objective PHYSICAL EXAMINATION: GENERAL: She is a well-developed, lean, [place] lady, lying in bed, in no acute distress. HEAD: Head normocephalic with right frontotemporal craniotomy scar. NECK: No neck rigidity was observed. She did have grade Trace/4 cervical paraspinal muscle and trapezius spasm. EENT: Examination benign except for bilateral pseudophakia. NEUROLOGICAL EXAMINATION: MENTAL STATUS EXAMINATION: She was alert and awake. She was oriented to self, hospital, and October. She did not know the name of the hospital, date, or year. She was able to recall 3/3 words immediately after 1 minute and after 3 minutes. She was able to remember presidents Trump and Obama but could not remember presidents prior to that. Her mathematical skills were impaired. Her visuospatial function was also impaired. SPEECH: She had no dysarthria. LANGUAGE: She had no aphasia in Danish as per the nurse who was interpreting for her. CRANIAL NERVE EXAMINATION: II: Visual garvey were intact to confrontation testing. III, IV & : The external ocular movements were full. Pupils were 5 x 6 millimeters and irregular and did not react to light. V: She had normal facial sensations and the temporales, masseters, and pterygoids functioned normally. VII: She had left VII central facial paresis. VIII: She was able to hear well bilaterally and had no nystagmus. IX: The palate moved symmetrically on phonation. X: She had no hoarseness of voice. XI: The sternocleidomastoids and trapezii functioned normally. XII: The tongue was in the midline without any fasciculations or atrophy. MOTOR SYSTEM: The tone was normal in all four extremities. Examination of muscle mass revealed no focal wasting. Examination of power revealed grade 5/5 power except for grade 4+/5 power in the left finger extensors and iliopsoas. SENSORY EXAMINATION: She had intact sensations to pinprick, light touch, and graphesthesia however she complained of subjective intense sensation on her left side. REFLEXES: Trace+ on the right and 1+ on the left in the biceps, triceps, brachioradialis, and knees and 0 at both ankles. The plantar responses were flexor bilaterally. STANCE: She stood up with support. GAIT: She took a few steps with support. Impression/Recommendations Diagnostic Impression 1. Ms. Maurizio Johnson is an 86-year-old, right-handed, [place] lady, who does have a past history of a brain abscess that was treated surgically numerous years ago, high blood pressure, and right hip fracture that was treated with surgical repair, who for the last 2 months has been having frequent headaches and for the last few days has been feeling unwell and ill. She was thus hospitalized and was discovered to have a significantly elevated blood pressure but pressure is now better controlled. 2. She feels better today and the headache is better. She also feels a little stronger. She also denies any new neurologic symptoms. 3. On neurological examination, at this time, she does have problems with orientation, recent and remote memory, visuospatial function, and higher cognitive function. She also has mild left hemiparesis involving the face, upper and lower extremities. The deep tendon reflexes are globally diminished though brisker on the left side than on the right. She in addition has cervical paraspinal muscle and trapezius spasm, however the degree os spasm is less today.. 4. The patient's history and neurological examination are most compatible with muscle contraction headaches - the headache is better today.. 5. The numbness in her feet is unexplained at this point in time, but may be related to a neuropathic process as she does demonstrate globally diminished reflexes. 6. The patient's generalized weakness is also still unexplained at this point in time. Recommendations 1. Continues present management. 2. Await results of tests to work up thoroughly for treatable causes of neuropathy and weakness. 3. Continue Flexeril 10 mg at bedtime for the next few nights to help her with the muscle contraction headaches. 4. Keep blood pressure in the physiological range. 5. Increase activity as tolerated. Judy Esquivel M.D., M.S.P.JUDY COREA Oct 17, 2016 14:02
--- NOTE | 2016-10-17 14:55 | Diagnostic Imaging Report ---
Indication: Acute renal failure Technique: Grayscale and duplex images of the kidneys, retroperitoneum, and bladder were obtained. Comparison:None Findings: Right kidney measures 7.6 cm in length. Left kidney measures 9.1 cm in length. Both kidneys demonstrate normal echogenicity. There is mild fullness of the left renal collecting system.. Calcifications are seen in the right renal collecting system. There is an 11 mm cyst in the right renal sinus.. Normal inferior vena cava. Bladder is distended, and patient was unable to void at the time of the exam In the right adnexal region, there is a complex cystic mass with septations which measures 7.4 cm long axis dimension. Impression: Incidentally noted complex cystic mass in the right adnexal region. 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 Further evaluation with formal dedicated pelvic and endovaginal ultrasound is recommended Atrophic right kidney Mild fullness of left renal collecting system, significance uncertain Nonobstructive right renal calculi Right renal cyst.
[2016-10-17] MEDS: Cyclobenzaprine 10mg Tab ORAL SCH (21:40)
[2016-10-18] VITALS: BP 113/53
[2016-10-18] MEDS: D5 1/2NS 1,000 ML IV SCH (03:51)
[2016-10-18 04:00] VITALS: BP 120/61
[2016-10-18 08:00] VITALS: BP 105/52
[2016-10-18] MEDS: Meclizine 25mg tab ORAL SCH ×3 (08:18→17:30)
[2016-10-18 08:21] LABS: MEAN CORPUSCULAR HGB CONC 32.9 G/DL (32.0-36.0); MEAN CORPUSCULAR VOLUME 100 FL (80-99); MEAN PLATELET VOLUME 6.6 FL (6.5-10.1); PLATELET COUNT 241 K/UL (150-450); RED BLOOD COUNT 3.32 M/UL (4.20-5.40); WHITE BLOOD COUNT 3.4 K/UL (4.8-10.8)
[2016-10-18] MEDS: Heparin 5000 units/ml inj SUBQ SCH ×2 (08:21→20:29)
[2016-10-18 08:37] LABS: ANION GAP 13 (5-15); CALCIUM 8.6 mg/dL (8.6-10.2); CARBON DIOXIDE 26 mEQ/L (20-30); CHLORIDE 101 mEQ/L (98-107); CREATININE 1.1 mg/dL (0.5-0.9); HEMOLYSIS 6; POTASSIUM 4.1 mEQ/L (3.4-4.9); SODIUM 140 mEQ/L (135-145)
--- NOTE | 2016-10-18 10:28 | Pulmonology Progress Note ---
Assessment/Plan Assessment/Plan ASSESSMENT muscle contraction headaches HTN urgency hx of brain abscess with craniectomy neuropathy dementia generalized weakness complex cystic mass R ovarian region , r/o neoplasm PLAN OF CARE MS floor CT head no acute changes, + evidence of R temporal craniectomy neuro follows per neuro - patient likely has muscle contraction headache BP management with CCB, improved workup for treatable causes of neuropathy -as per neuro pain management muscle relaxant PT/OT fall precaution lipid panel with elevated TC, add low dose Lipitor diet : low fat low cholesterol cardiac gentle IVF, monitor renal parameters, lytes, creat trending down, possibly ARF 2 to dehydration renal US revealed atrophic R kidney accidental finding of complex cystic mass in the right adnexal region with septations. 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 will check Ca125 CXR negative venous Duplex BLE negative psych follows psych meds as per psychiatrist DVT prophylaxis case discussed and evaluated by supervising physician Subjective Allergies: Coded Allergies: NO KNOWN DRUG ALLERGIES (Unverified Allergy, Unknown, 04/03/15) Subjective no signs of distress, denies headaches creat trending down Objective Last 24 Hour Vital Signs Date Time Temp Pulse Resp B/P Pulse Ox O2 Delivery O2 Flow Rate FiO2 10/18/16 08:19 69 103/52 10/18/16 08:00 98.0 69 18 105/52 98 Room Air 10/18/16 04:00 97.5 64 22 120/61 98 Room Air 10/18/16 00:00 97.2 72 18 113/53 99 Room Air 10/17/16 22:39 97.5 10/17/16 20:00 97.5 74 17 115/58 98 Room Air 10/17/16 16:00 98.2 69 17 123/67 99 Room Air 10/17/16 12:33 97.7 62 18 134/64 99 Room Air Intake and Output 10/17/16 10/18/16 19:00 07:00 Intake Total 615 ml 790 ml Output Total 1 ml Balance 615 ml 789 ml Intake Oral 240 ml 440 ml IV Total 375 ml 350 ml Output Urine Total 1 ml # Voids 1 4 Objective General Appearance: no acute distress, cachetic HEENT: anicteric, mucous membranes moist, R temporal craniectomy defect Respiratory/Chest: lungs clear, no respiratory distress, no accessory muscle use Cardiovascular: normal rate, regular rhythm Abdomen: normal bowel sounds, soft, non tender Genitourinary: normal external genitalia Extremities: no edema, pedal pulses normal Neurologic/Psychiatric: alert - Thai speaking only, responsive, forgetful , other - mild left hemiparesis, globally diminished DTR, numbness bilateral foot Musculoskeletal: atrophy - BLE Microbiology Date/Time Source Procedure Growth Status 10/15/16 20:20 Blood Blood Culture - Preliminary NO GROWTH AFTER 24 HOURS Resulted 10/15/16 20:10 Blood Blood Culture - Preliminary NO GROWTH AFTER 24 HOURS Resulted Laboratory Tests 10/17/16 11:00: Hemoglobin A1c 5.1, Total Protein (PEP) [Pending], Albumin (PEP) [Pending], Globulin (PEP) [Pending], Albumin/Globulin Ratio [Pending], [id number]-[id number] [ Pending], Dpnjf-7-Insebmkhn [Pending], Beta Globulins [Pending], Beta Gamma Globulin [Pending], PEP Abnormal Protein Bands [Pending], Protein Electrophoresis Interpret [Pending], Vitamin B12 Level 545, Vitamin D 25- Hydroxy [Pending], 25-Hydroxy Vitamin D2 [Pending], 25-Hydroxy Vitamin D3 [ Pending], Folate [Pending], Rapid Plasma Reagin [Pending] 10/17/16 12:30: Erythrocyte Sedimentation Rate 34 10/18/16 07:10: White Blood Count 3.4L, Red Blood Count 3.32L, Hemoglobin 11.0L, Hematocrit 33.3L, Mean Corpuscular Volume 100H, Mean Corpuscular Hemoglobin 33.0H, Mean Corpuscular Hemoglobin Concent 32.9, Red Cell Distribution Width 13.0, Platelet Count 241, Mean Platelet Volume 6.6, Neutrophils (%) (Auto) , Lymphocytes (%) ( Auto) , Monocytes (%) (Auto) , Eosinophils (%) (Auto) , Basophils (%) (Auto) , Neutrophils % (Manual) [Pending], Lymphocytes % (Manual) [Pending], Platelet Estimate [Pending], Platelet Morphology [Pending], Sodium Level 140, Potassium Level 4.1, Chloride Level 101, Carbon Dioxide Level 26, Anion Gap 13, Blood Urea Nitrogen 23, Creatinine 1.1H, Estimat Glomerular Filtration Rate , Glucose Level 94, Calcium Level 8.6 Current Medications Medications (Trade) Dose Ordered Sig/Micheline Route PRN Reason Start Time Stop Time Status Last Admin Dose Admin Acetaminophen (Tylenol) 650 mg Q4H PRN ORAL fever 10/15/16 23:00 11/14/16 22:59 Al Hydroxide/Mg Hydroxide (Mylanta II) 30 ml Q6H PRN ORAL dyspepsia 10/15/16 23:00 11/14/16 22:59 Albuterol/ Ipratropium (DuoNeb 0.5-3(2.5)mg/3ml) 3 ml EVERY 4 HOURS PRN HHN Shortness of Breath 10/15/16 23:00 10/20/16 22:59 Amlodipine Besylate (Norvasc) 5 mg DAILY ORAL 10/16/16 09:00 11/15/16 08:59 10/18/16 08:19 Atorvastatin Calcium 10 mg 10 mg BEDTIME ORAL 10/17/16 21:00 11/16/16 20:59 10/17/16 21:40 Clonidine HCl (Catapres) 0.1 mg Q4H PRN ORAL For High Blood Pressure 10/15/16 23:00 11/14/16 22:59 Cyclobenzaprine HCl (Flexeril) 10 mg BEDTIME ORAL 10/16/16 21:00 11/15/16 20:59 10/17/16 21:40 Dextrose (Dextrose 50%) STAT PRN IV Hypoglycemia 10/15/16 23:00 11/14/16 22:59 Dextrose/Sodium Chloride (D5 0.45% NS) 1,000 ml @ 50 mls/hr Q20H IV 10/17/16 11:30 11/16/16 11:29 10/18/16 03:51 Heparin Sodium (Porcine) (Heparin 5000 units/ml) 5,000 units EVERY 12 HOURS SUBQ 10/16/16 09:00 11/15/16 08:59 10/18/16 08:21 Lorazepam (Ativan 2mg/ml 1ml) 0.5 mg Q4H PRN IV For Anxiety 10/15/16 23:00 10/22/16 22:59 Meclizine HCl (Antivert) 25 mg THREE TIMES A DAY ORAL 10/16/16 09:00 11/15/16 08:59 10/18/16 08:18 Morphine Sulfate (Morphine Sulfate) 1 mg EVERY 4 HOURS PRN IVP For Pain 7-10 10/15/16 23:00 10/22/16 22:59 10/17/16 08:59 Nitroglycerin (Ntg) 0.4 mg Q5M X 3 DOSES PRN SL Prn Chest Pain 10/15/16 23:00 11/14/16 22:59 Ondansetron HCl (Zofran) 4 mg Q6H PRN IVP Nausea & Vomiting 10/15/16 23:00 11/14/16 22:59 Polyethylene Glycol (Miralax) 17 gm HSPRN PRN ORAL Constipation 10/15/16 23:00 11/14/16 22:59 Promethazine HCl/ Codeine (Phenergan with Codeine) 5 ml Q4H PRN ORAL For Cough 10/15/16 23:00 11/14/16 22:59 Temazepam (Restoril) 15 mg HSPRN PRN ORAL Insomnia 10/15/16 23:00 10/22/16 22:59 Ismael ([facility])Lisa NP Oct 18, 2016 10:27
[2016-10-18 10:39] LABS: BAND NEUTROPHILS % (MANUAL) 0 % (0-8); BASOPHILS % (MANUAL) 0 % (0-2); EOSINOPHILS % (MANUAL) 2 % (0-3); LYMPHOCYTES % (MANUAL) 42 % (20-45); NEUTROPHILS % (MANUAL) 47 % (45-75); PLATELET ESTIMATE ADEQUATE; TOTAL CELLS COUNTED 100
[2016-10-18 10:41] LABS: MACROCYTES 1+
[2016-10-18 10:42] LABS: ANISOCYTOSIS 1+; HYPOCHROMASIA OCCASIONAL
[2016-10-18 12:00] VITALS: BP 117/57
[2016-10-18 12:02] LABS: PLATELET MORPHOLOGY NORMAL
[2016-10-18 13:31] LABS: PROTHROMBIN TIME 9.4 SEC (9.30-11.50)
[2016-10-18 13:35] LABS: ANION GAP 14 (5-15); CALCIUM 8.5 mg/dL (8.6-10.2); CARBON DIOXIDE 25 mEQ/L (20-30); CHLORIDE 103 mEQ/L (98-107); HEMOLYSIS 6; SODIUM 142 mEQ/L (135-145)
--- NOTE | 2016-10-18 14:08 | Neurology Progress Note ---
Interim History Interim History Interim History Ms. Johnson feels better. The headache is much better. She feels stronger. She denies any new neurologic symptoms. She specifically denies any weakness on one side or the other, numbness on one side or the other, problems with speech, problems with language or any other neurologic symptoms. She is eager to go home. Review of Systems Neuro Review of Systems Benign. Objective Physical Exam Last Vital Signs Date Time Temp Pulse Resp B/P Pulse Ox O2 Delivery O2 Flow Rate FiO2 10/18/16 12:00 98.2 73 18 117/57 98 Room Air Laboratory Tests Test 10/18/16 07:10 10/18/16 12:55 White Blood Count 3.4 K/UL (4.8-10.8) L Red Blood Count 3.32 M/UL (4.20-5.40) L Hemoglobin 11.0 G/DL (12.0-16.0) L Hematocrit 33.3 % (37.0-47.0) L Mean Corpuscular Volume 100 FL (80-99) H Mean Corpuscular Hemoglobin 33.0 PG (27.0-31.0) H Mean Corpuscular Hemoglobin Concent 32.9 G/DL (32.0-36.0) Red Cell Distribution Width 13.0 % (11.6-14.8) Platelet Count 241 K/UL (150-450) Mean Platelet Volume 6.6 FL (6.5-10.1) Neutrophils (%) (Auto) % (45.0-75.0) Lymphocytes (%) (Auto) % (20.0-45.0) Monocytes (%) (Auto) % (1.0-10.0) Eosinophils (%) (Auto) % (0.0-3.0) Basophils (%) (Auto) % (0.0-2.0) Differential Total Cells Counted 100 Neutrophils % (Manual) 47 % (45-75) Lymphocytes % (Manual) 42 % (20-45) Monocytes % (Manual) 9 % (1-10) Eosinophils % (Manual) 2 % (0-3) Basophils % (Manual) 0 % (0-2) Band Neutrophils 0 % (0-8) Platelet Estimate Adequate Platelet Morphology Normal Red Blood Cell Morphology Hypochromasia Occasional Anisocytosis 1+ Macrocytosis 1+ Sodium Level 140 mEQ/L (135-145) 142 mEQ/L (135-145) Potassium Level 4.1 mEQ/L (3.4-4.9) 4.0 mEQ/L (3.4-4.9) Chloride Level 101 mEQ/L (98-107) 103 mEQ/L (98-107) Carbon Dioxide Level 26 mEQ/L (20-30) 25 mEQ/L (20-30) Anion Gap 13 (5-15) 14 (5-15) Blood Urea Nitrogen 23 mg/dL (7-23) 22 mg/dL (7-23) Creatinine 1.1 mg/dL (0.5-0.9) H 1.0 mg/dL (0.5-0.9) H Estimat Glomerular Filtration Rate mL/min (>60) mL/min (>60) Glucose Level 94 mg/dL (74-106) 102 mg/dL (74-106) Calcium Level 8.6 mg/dL (8.6-10.2) 8.5 mg/dL (8.6-10.2) L Prothrombin Time 9.4 SEC (9.30-11.50) Prothromb Time International Ratio 1.0 (0.9-1.1) Carcinoembryonic Antigen Pending CA 19-9 Antigen Pending Neurologic Exam Objective PHYSICAL EXAMINATION: GENERAL: She is a well-developed, lean, Irish lady, lying in bed, in no acute distress. HEAD: Head normocephalic with right frontotemporal craniotomy scar. NECK: No neck rigidity was observed. She did have grade Trace/4 cervical paraspinal muscle and trapezius spasm. EENT: Examination benign except for bilateral pseudophakia. NEUROLOGICAL EXAMINATION: MENTAL STATUS EXAMINATION: She was alert and awake. She was oriented to [facility], [facility], and October. She did not know the date, or year. She was able to recall 3/3 words immediately after 1 minute and after 3 minutes. She was able to remember presidents Trump and Obama but could not remember presidents prior to that. Her mathematical skills were impaired. Her visuospatial function was also impaired. SPEECH: She had no dysarthria. LANGUAGE: She had no aphasia in Irish as per her daughter who was interpreting for her. CRANIAL NERVE EXAMINATION: II: Visual garvey were intact to confrontation testing. III, IV & : The external ocular movements were full. Pupils were 5 x 6 millimeters and irregular and did not react to light. V: She had normal facial sensations and the temporales, masseters, and pterygoids functioned normally. VII: She had left VII central facial paresis. VIII: She was able to hear well bilaterally and had no nystagmus. IX: The palate moved symmetrically on phonation. X: She had no hoarseness of voice. XI: The sternocleidomastoids and trapezii functioned normally. XII: The tongue was in the midline without any fasciculations or atrophy. MOTOR SYSTEM: The tone was normal in all four extremities. Examination of muscle mass revealed no focal wasting. Examination of power revealed grade 5/5 power except for grade 4+/5 power in the left finger extensors and iliopsoas. SENSORY EXAMINATION: She had intact sensations to pinprick, light touch, and graphesthesia however she complained of subjective intense sensation on her left side. REFLEXES: Trace+ on the right and 1+ on the left in the biceps, triceps, brachioradialis, and knees and 0 at both ankles. The plantar responses were flexor bilaterally. STANCE: She stood up with support. GAIT: She walked well with support. Impression/Recommendations Diagnostic Impression 1. Ms. 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 She was thus hospitalized and was discovered to have a significantly elevated blood pressure but pressure is now better controlled. 2. She feels better today and the headache is much better - almost gone. She also feels a stronger. She denies any new neurologic symptoms. 3. On neurological examination, at this time, she does have problems with orientation, recent and remote memory, visuospatial function, and higher cognitive function. She also has mild left hemiparesis involving the face, upper and lower extremities. The deep tendon reflexes are globally diminished though brisker on the left side than on the right. She in addition has cervical paraspinal muscle and trapezius spasm, however the degree of spasm has decreased. 4. The patient's history and neurological examination are most compatible with muscle contraction headaches - the headache is much better today.. 5. The numbness in her feet is unexplained at this point in time, but may be related to a neuropathic process as she does demonstrate globally diminished reflexes. 6. The patient's generalized weakness is also still unexplained but has improved. Recommendations 1. Continue present management. 2. Await results of tests to work up thoroughly for treatable causes of neuropathy and weakness. 3. Continue Flexeril 10 mg at bedtime for the next few nights to help her with the muscle contraction headaches. 4. Keep blood pressure in the physiological range. 5. Increase activity as tolerated. Judy Esquivel M.D., M.S.P.JUDY COREA Oct 18, 2016 14:08
[2016-10-18 16:00] VITALS: BP 124/63
[2016-10-18 20:00] VITALS: BP 153/73
[2016-10-18] MEDS: Cyclobenzaprine 10mg Tab ORAL SCH (20:17)
[2016-10-18] MEDS ORDERED: D5 1/2NS 1000ml IV ONE (20:53)
--- NOTE | 2016-10-18 23:49 | Progress Note ---
DATE: 10/18/2016 SUBJECTIVE: The patient is stable at baseline. CT of the head was nonsignificant. No acute changes. The patient presents with impairment of concentration, memory, and attention, in no acute distress. Compliant with medications. Mental status is improving and she has less weakness as well as less headache. MENTAL STATUS EXAMINATION: The patient is alert and oriented x2. Mood is dysphoric. Affect is constricted and congruent with mood. Thought process is concrete. Thought content, no suicidal, or homicidal ideation. Cognition, there is no memory impairment. ASSESSMENT: 1. Cognitive impairment. 2. Delirium improving. 3. Mood disorder. PLAN: 1. The patient will be continued on current medication. 2. She would like to be discharged, however, she is not admitting to leave against medical advice. Jet Garza M.D. DR: PRIYANKA JOB#: [id number] CC:
[2016-10-19 00:46] VITALS: BP 152/77
[2016-10-19] MEDS: D5 1/2NS 1,000 ML IV SCH ×2 (03:30→23:30)
[2016-10-19 04:00] VITALS: BP 156/85
[2016-10-19 08:00] VITALS: BP 112/72
[2016-10-19 08:08] LABS: BASOPHILS % (AUTO) 1.7 % (0.0-2.0); LYMPHOCYTES % (AUTO) 37.2 % (20.0-45.0); MEAN CORPUSCULAR HGB CONC 31.8 G/DL (32.0-36.0); MEAN CORPUSCULAR VOLUME 101 FL (80-99); MEAN PLATELET VOLUME 6.9 FL (6.5-10.1); NEUTROPHILS % (AUTO) 47.1 % (45.0-75.0); PLATELET COUNT 225 K/UL (150-450); RED BLOOD COUNT 3.33 M/UL (4.20-5.40); RED CELL DISTRIBUTION WIDTH 12.8 % (11.6-14.8); WHITE BLOOD COUNT 3.6 K/UL (4.8-10.8)
[2016-10-19 08:12] LABS: ANION GAP 15 (5-15); CALCIUM 9.1 mg/dL (8.6-10.2); CARBON DIOXIDE 25 mEQ/L (20-30); CHLORIDE 102 mEQ/L (98-107); CREATININE 1.2 mg/dL (0.5-0.9); HEMOLYSIS 9; POTASSIUM 3.8 mEQ/L (3.4-4.9); SODIUM 142 mEQ/L (135-145)
[2016-10-19] MEDS: Heparin 5000 units/ml inj SUBQ SCH ×2 (08:19→21:12)
[2016-10-19] MEDS: Meclizine 25mg tab ORAL SCH ×3 (08:19→18:07)
--- NOTE | 2016-10-19 09:13 | General Progress Note ---
Assessment/Plan Problem List: (1) Dehydration ICD Codes: E86.0 - Dehydration SNOMED: 06348083 (2) ACS (acute coronary syndrome) ICD Codes: I24.9 - Acute ischemic heart disease, unspecified SNOMED: 368620305 (3) Generalized weakness ICD Codes: R53.1 - Weakness SNOMED: 65669994 (4) Hypertension ICD Codes: I10 - Essential (primary) hypertension SNOMED: 91077032 Status: progressing Assessment/Plan afebrile vitals stable dehydration improving reviewed chart and labs no cp Subjective ROS Limited/Unobtainable: Yes Constitutional: Reports: no symptoms Allergies: Coded Allergies: NO KNOWN DRUG ALLERGIES (Unverified Allergy, Unknown, 04/03/15) Objective Last 24 Hour Vital Signs Date Time Temp Pulse Resp B/P Pulse Ox O2 Delivery O2 Flow Rate FiO2 10/19/16 08:20 85 112/82 10/19/16 04:00 97.5 66 19 156/85 100 Room Air 10/19/16 00:46 97.9 71 18 152/77 97 Room Air 10/18/16 20:00 97.5 62 20 153/73 99 Room Air 10/18/16 16:00 97.9 80 18 124/63 98 Room Air 18 10/18/16 12:00 98.2 73 18 117/57 98 Room Air Intake and Output 10/18/16 10/19/16 19:00 07:00 Intake Total 1000 ml 1025 ml Output Total 2 ml Balance 998 ml 1025 ml Intake Oral 400 ml 600 ml IV Total 600 ml 425 ml Output Urine Total 2 ml # Voids 5 Laboratory Tests 10/18/16 12:55: Prothrombin Time 9.4, Prothromb Time International Ratio 1.0, Sodium Level 142, Potassium Level 4.0, Chloride Level 103, Carbon Dioxide Level 25, Anion Gap 14, Blood Urea Nitrogen 22, Creatinine 1.0H, Estimat Glomerular Filtration Rate , Glucose Level 102, Calcium Level 8.5L, Carcinoembryonic Antigen 4.4H, CA 19-9 Antigen 0.600 10/19/16 06:40: Sodium Level 142, Potassium Level 3.8, Chloride Level 102, Carbon Dioxide Level 25, Anion Gap 15, Blood Urea Nitrogen 25H, Creatinine 1.2H, Estimat Glomerular Filtration Rate , Glucose Level 93, Calcium Level 9.1, White Blood Count 3.6L, Red Blood Count 3.33L, Hemoglobin 10.7L, Hematocrit 33.6L, Mean Corpuscular Volume 101H, Mean Corpuscular Hemoglobin 32.0H, Mean Corpuscular Hemoglobin Concent 31.8L, Red Cell Distribution Width 12.8, Platelet Count 225, Mean Platelet Volume 6.9, Neutrophils (%) (Auto) 47.1, Lymphocytes (%) (Auto) 37.2, Monocytes (%) (Auto) 12.0H, Eosinophils (%) (Auto) 2.0, Basophils (%) (Auto) 1.7 , CA 125 Antigen [Pending] Height (Feet): 5 Height (Inches): 3.00 Weight (Pounds): 91 Cardiovascular: normal rate Respiratory/Chest: lungs clear Abdomen: soft Trae Gregg MD Oct 19, 2016 09:13
--- NOTE | 2016-10-19 09:38 | Consultation ---
DATE OF CONSULTATION: 10/18/2016 NOTE: "POOR AUDIO QUALITY" HEMATOLOGY/ONCOLOGY CONSULTATION CONSULTING PHYSICIAN: Rocky Julien M.D. ADMITTING PHYSICIAN: Trae Gregg M.D. CURRENT COMPLAINT AND HISTORY OF PRESENT ILLNESS: Dear Dr. Gregg: Today, I had an opportunity to see one of your patients, who is an 86-year-old Polish-speaking lady, with past medical history remarkable for brain surgery in the year 1999, history of brain tumor, dizziness, and hypertension. The patient ended up having headache and generalized weakness. The patient also claimed some face pain, some cough, and history of hypertension. The patient claims that she did have brain abscess for many years which was surgically removed in [place]. Mostly, the patient is complaining of headache. The patient has been very weak. The patient ended up in the emergency room . During evaluation, it was found that the patient developed significant anemia. My service was called to handle the issue of blood dyscrasia. PAST MEDICAL HISTORY: 1. History of brain abscess, numerous. 2. Status post craniotomy and removal of brain abscess. 3. Hypertension. MEDICATIONS: 1. Lipitor. 2. Restoril. 3. Antivert. 4. Norvasc. 5. Ipratropium. 6. 7. Lorazepam. 8. Zofran. ALLERGIES: NKDA. SOCIAL HISTORY: History of smoking. No history of alcohol abuse. No history of illicit drug use. FAMILY HISTORY: Noncontributory. REVIEW OF SYSTEMS: General Description: The patient is not in any significant distress, but looks chronically ill. Respiratory System: Mild shortness of breath on exertion. Gastrointestinal: The patient claims constipation. Neuromuscular: The patient claims muscle weakness. PHYSICAL EXAMINATION: VITAL SIGNS: T-max 97 degrees, respiratory rate 20, heart rate 80, and blood pressure 130/80. HEENT: Head normocephalic and atraumatic. NECK: Supple. No thyroid enlargement. No lymphadenopathy. LUNGS: Decreased breath sounds bilaterally with few rhonchi in the base. HEART: S1 and S2 regular. ABDOMEN: Soft and benign. No organomegaly present. Bowel sounds present. EXTREMITIES: No cyanosis, clubbing, or edema. LABORATORY DATA: Creatinine 1.0. CEA equal to 4.4. WBC 3.4, hemoglobin 11.0, hematocrit 33.3, platelets 241,000. IMPRESSION: 1. Leukopenia, multifactorial. 2. Anemia of chronic disease. 3. Decreased hemoglobin and hematocrit, rule out gastrointestinal bleed. 4. Anemia of iron deficiency. 5. Headache. 6. Hypertension. 7. History of brain abscesses, craniotomy. 8. Neuropathy. 9. Dementia. 10. Generalized weakness. 11. 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 RECOMMENDATIONS: 1. Watch count. 2. Watch coagulopathy. 3. CT scan of abdomen and pelvic with and without contrast. 4. Skin care. 5. Nutrition. 6. GI evaluation. 7. Close followup. Rocky Julien MD DR: MARIN JOB#: [id number] CC:
[2016-10-19 12:00] VITALS: BP 120/69
--- NOTE | 2016-10-19 13:56 | Pulmonology Progress Note ---
Assessment/Plan Assessment/Plan ASSESSMENT muscle contraction headaches HTN urgency hx of brain abscess with craniectomy neuropathy dementia generalized weakness complex cystic mass R ovarian region , r/o neoplasm PLAN OF CARE MS floor CT head no acute changes, + evidence of R temporal craniectomy neuro follows per neuro - patient likely has muscle contraction headache BP management with CCB, improved workup for treatable causes of neuropathy -as per neuro pain management muscle relaxant PT/OT fall precaution lipid panel with elevated TC, add low dose Lipitor diet : low fat low cholesterol cardiac gentle IVF, monitor renal parameters, lytes, creat trending down, possibly ARF 2 to dehydration renal US revealed atrophic R kidney accidental finding of complex cystic mass in the right adnexal region with septations. 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 SET STAFF FITTER eval - per PMD heme eval noted Ca125 -pending, elevated cEA and nicci Ca19-9 CXR negative venous Duplex BLE negative psych follows psych meds as per psychiatrist DVT prophylaxis case discussed and evaluated by supervising physician Subjective Allergies: Coded Allergies: NO KNOWN DRUG ALLERGIES (Unverified Allergy, Unknown, 04/03/15) Subjective no signs of distress, denies headaches creat trending down from initial Objective Last 24 Hour Vital Signs Date Time Temp Pulse Resp B/P Pulse Ox O2 Delivery O2 Flow Rate FiO2 10/19/16 12:00 97.0 79 18 120/69 98 Room Air 10/19/16 08:20 85 112/82 10/19/16 08:00 97.0 85 20 112/72 99 Room Air 10/19/16 04:00 97.5 66 19 156/85 100 Room Air 10/19/16 00:46 97.9 71 18 152/77 97 Room Air 10/18/16 20:00 97.5 62 20 153/73 99 Room Air 10/18/16 16:00 97.9 80 18 124/63 98 Room Air 18 Intake and Output 10/18/16 10/19/16 19:00 07:00 Intake Total 1000 ml 1075 ml Output Total 2 ml Balance 998 ml 1075 ml Intake Oral 400 ml 600 ml IV Total 600 ml 475 ml Output Urine Total 2 ml # Voids 5 Objective General Appearance: no acute distress, cachetic HEENT: anicteric, mucous membranes moist, R temporal craniectomy defect Respiratory/Chest: lungs clear, no respiratory distress, no accessory muscle use Cardiovascular: normal rate, regular rhythm Abdomen: normal bowel sounds, soft, non tender Genitourinary: normal external genitalia Extremities: no edema, pedal pulses normal Neurologic/Psychiatric: alert - Maori speaking only, responsive, forgetful , other - mild left hemiparesis, globally diminished DTR, numbness bilateral foot Musculoskeletal: atrophy - BLE Microbiology Date/Time Source Procedure Growth Status 10/17/16 14:00 Nasal Nares MRSA Culture - Final NO METHICILLIN RESISTANT STAPH AUREUS... Complete 10/17/16 06:30 Nasal Nares MRSA Culture - Final NO METHICILLIN RESISTANT STAPH AUREUS... Complete 10/17/16 14:00 Rectum VRE Culture - Final NO VANCOMYCIN RESISTANT ENTEROCOCCUS ... Complete Laboratory Tests 10/19/16 06:40: White Blood Count 3.6L, Red Blood Count 3.33L, Hemoglobin 10.7L, Hematocrit 33.6L, Mean Corpuscular Volume 101H, Mean Corpuscular Hemoglobin 32.0H, Mean Corpuscular Hemoglobin Concent 31.8L, Red Cell Distribution Width 12.8, Platelet Count 225, Mean Platelet Volume 6.9, Neutrophils (%) (Auto) 47.1, Lymphocytes (%) (Auto) 37.2, Monocytes (%) (Auto) 12.0H, Eosinophils (%) (Auto) 2.0, Basophils (%) (Auto) 1.7, Sodium Level 142, Potassium Level 3.8, Chloride Level 102, Carbon Dioxide Level 25, Anion Gap 15, Blood Urea Nitrogen 25H, Creatinine 1.2H, Estimat Glomerular Filtration Rate , Glucose Level 93, Calcium Level 9.1, CA 125 Antigen [Pending] Current Medications Medications (Trade) Dose Ordered Sig/Micheline Route PRN Reason Start Time Stop Time Status Last Admin Dose Admin Acetaminophen (Tylenol) 650 mg Q4H PRN ORAL fever 10/15/16 23:00 11/14/16 22:59 Al Hydroxide/Mg Hydroxide (Mylanta II) 30 ml Q6H PRN ORAL dyspepsia 10/15/16 23:00 11/14/16 22:59 Albuterol/ Ipratropium (DuoNeb 0.5-3(2.5)mg/3ml) 3 ml EVERY 4 HOURS PRN HHN Shortness of Breath 10/15/16 23:00 3/20/17 22:59 Amlodipine Besylate (Norvasc) 5 mg DAILY ORAL 10/16/16 09:00 11/15/16 08:59 10/19/16 08:20 Atorvastatin Calcium 10 mg 10 mg BEDTIME ORAL 10/17/16 21:00 11/16/16 20:59 10/18/16 20:16 Clonidine HCl (Catapres) 0.1 mg Q4H PRN ORAL For High Blood Pressure 10/15/16 23:00 11/14/16 22:59 Cyclobenzaprine HCl (Flexeril) 10 mg BEDTIME ORAL 10/16/16 21:00 11/15/16 20:59 10/18/16 20:17 Dextrose (Dextrose 50%) STAT PRN IV Hypoglycemia 10/15/16 23:00 11/14/16 22:59 Dextrose/Sodium Chloride (D5 0.45% NS) 1,000 ml @ 50 mls/hr Q20H IV 10/17/16 11:30 11/16/16 11:29 10/19/16 03:30 Heparin Sodium (Porcine) (Heparin 5000 units/ml) 5,000 units EVERY 12 HOURS SUBQ 10/16/16 09:00 11/15/16 08:59 10/19/16 08:19 Lorazepam (Ativan 2mg/ml 1ml) 0.5 mg Q4H PRN IV For Anxiety 10/15/16 23:00 10/22/16 22:59 Meclizine HCl (Antivert) 25 mg THREE TIMES A DAY ORAL 10/16/16 09:00 11/15/16 08:59 10/19/16 13:54 Morphine Sulfate (Morphine Sulfate) 1 mg EVERY 4 HOURS PRN IVP For Pain 7-10 10/15/16 23:00 10/22/16 22:59 10/17/16 08:59 Nitroglycerin (Ntg) 0.4 mg Q5M X 3 DOSES PRN SL Prn Chest Pain 10/15/16 23:00 11/14/16 22:59 Ondansetron HCl (Zofran) 4 mg Q6H PRN IVP Nausea & Vomiting 10/15/16 23:00 11/14/16 22:59 Polyethylene Glycol (Miralax) 17 gm HSPRN PRN ORAL Constipation 10/15/16 23:00 11/14/16 22:59 Promethazine HCl/ Codeine (Phenergan with Codeine) 5 ml Q4H PRN ORAL For Cough 10/15/16 23:00 11/14/16 22:59 Temazepam (Restoril) 15 mg HSPRN PRN ORAL Insomnia 10/15/16 23:00 10/22/16 22:59 Ismael ([facility])Lisa NP Oct 19, 2016 13:56
--- NOTE | 2016-10-19 15:17 | Neurology Progress Note ---
Interim History Interim History Interim History Ms. Johnson feels better. The headache has resolved. She feels stronger. She denies any new neurologic symptoms. She specifically denies any weakness on one side or the other, numbness on one side or the other, problems with speech, problems with language or any other neurologic symptoms. She is eager to go home. Review of Systems Neuro Review of Systems Benign. Objective Physical Exam Last Vital Signs Date Time Temp Pulse Resp B/P Pulse Ox O2 Delivery O2 Flow Rate FiO2 10/19/16 12:00 97.0 79 18 120/69 98 Room Air Laboratory Tests Test 10/19/16 06:40 White Blood Count 3.6 K/UL (4.8-10.8) L Red Blood Count 3.33 M/UL (4.20-5.40) L Hemoglobin 10.7 G/DL (12.0-16.0) L Hematocrit 33.6 % (37.0-47.0) L Mean Corpuscular Volume 101 FL (80-99) H Mean Corpuscular Hemoglobin 32.0 PG (27.0-31.0) H Mean Corpuscular Hemoglobin Concent 31.8 G/DL (32.0-36.0) L Red Cell Distribution Width 12.8 % (11.6-14.8) Platelet Count 225 K/UL (150-450) Mean Platelet Volume 6.9 FL (6.5-10.1) Neutrophils (%) (Auto) 47.1 % (45.0-75.0) Lymphocytes (%) (Auto) 37.2 % (20.0-45.0) Monocytes (%) (Auto) 12.0 % (1.0-10.0) H Eosinophils (%) (Auto) 2.0 % (0.0-3.0) Basophils (%) (Auto) 1.7 % (0.0-2.0) Sodium Level 142 mEQ/L (135-145) Potassium Level 3.8 mEQ/L (3.4-4.9) Chloride Level 102 mEQ/L (98-107) Carbon Dioxide Level 25 mEQ/L (20-30) Anion Gap 15 (5-15) Blood Urea Nitrogen 25 mg/dL (7-23) H Creatinine 1.2 mg/dL (0.5-0.9) H Estimat Glomerular Filtration Rate mL/min (>60) Glucose Level 93 mg/dL (74-106) Calcium Level 9.1 mg/dL (8.6-10.2) CA 125 Antigen Pending Neurologic Exam Objective PHYSICAL EXAMINATION: GENERAL: She is a well-developed, lean, Frisian lady, lying in bed, in no acute distress. HEAD: Head normocephalic with right frontotemporal craniotomy scar. NECK: No neck rigidity was observed. She did have grade Trace/4 cervical paraspinal muscle and trapezius spasm. EENT: Examination benign except for bilateral pseudophakia. NEUROLOGICAL EXAMINATION: MENTAL STATUS EXAMINATION: She was alert and awake. She was oriented to [facility], [facility], and October. She did not know the date, or year. She was able to recall 3/3 words immediately after 1 minute and after 3 minutes. She was able to remember presidents Trump and Obama but could not remember presidents prior to that. Her mathematical skills were impaired. Her visuospatial function was also impaired. SPEECH: She had no dysarthria. LANGUAGE: She had no aphasia in Frisian. CRANIAL NERVE EXAMINATION: II: Visual garvey were intact to confrontation testing. III, IV & : The external ocular movements were full. Pupils were 5 x 6 millimeters and irregular and did not react to light. V: She had normal facial sensations and the temporales, masseters, and pterygoids functioned normally. VII: She had left VII central facial paresis. VIII: She was able to hear well bilaterally and had no nystagmus. IX: The palate moved symmetrically on phonation. X: She had no hoarseness of voice. XI: The sternocleidomastoids and trapezii functioned normally. XII: The tongue was in the midline without any fasciculations or atrophy. MOTOR SYSTEM: The tone was normal in all four extremities. Examination of muscle mass revealed no focal wasting. Examination of power revealed grade 5/5 power except for grade 5-/5 power in the left finger extensors and iliopsoas. SENSORY EXAMINATION: She had intact sensations to pinprick, light touch, and graphesthesia however she complained of subjective intense sensation on her left side. REFLEXES: Trace+ on the right and 1+ on the left in the biceps, triceps, brachioradialis, and knees and 0 at both ankles. The plantar responses were flexor bilaterally. STANCE: She stood up with support. GAIT: She walked well with support. Impression/Recommendations Diagnostic Impression 1. Ms. 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 She was thus hospitalized and was discovered to have a significantly elevated blood pressure but pressure is now better controlled. 2. She feels better today. The headache has resolved. She feels stronger. She denies any new neurologic symptoms. 3. On neurological examination, at this time, she does have problems with orientation, recent and remote memory, visuospatial function, and higher cognitive function. She also has mild left hemiparesis involving the face, upper and lower extremities. The deep tendon reflexes are globally diminished though brisker on the left side than on the right. She in addition has cervical paraspinal muscle and trapezius spasm, however the degree of spasm has decreased. 4. The patient's history and neurological examination are most compatible with muscle contraction headaches - the headache has resolved. 5. The numbness in her feet is unexplained at this point in time, but may be related to a neuropathic process as she does demonstrate globally diminished reflexes. 6. The patient's generalized weakness is unexplained but has now resolved. Recommendations 1. Continue present management. 2. Await results of tests to work up thoroughly for treatable causes of neuropathy and weakness. 3. Continue Flexeril 10 mg at bedtime for the next few nights to help her with the muscle contraction headaches. 4. Keep blood pressure in the physiological range. 5. Increase activity as tolerated. Judy Esquivel M.D., M.S.P.H. JUDY ESQUIVEL Oct 19, 2016 15:17
[2016-10-19 16:22] VITALS: BP 138/69
[2016-10-19 20:00] VITALS: BP 144/79
[2016-10-19] MEDS: Cyclobenzaprine 10mg Tab ORAL SCH (21:00)
--- NOTE | 2016-10-19 22:53 | General Progress Note ---
Assessment/Plan Assessment/Plan IMPRESSION: 1. Leukopenia, multifactorial. 2. Anemia of chronic disease. 3. Decreased hemoglobin and hematocrit, rule out gastrointestinal bleed. 4. Anemia of iron deficiency. 5. Headache. 6. Hypertension. 7. History of brain abscesses, craniotomy. 8. Neuropathy. 9. Dementia. 10. Generalized weakness. 11. 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 RECOMMENDATIONS: 1. Watch count. 2. Watch coagulopathy. 3. CT scan of abdomen and pelvic with and without contrast. 4. Skin care. 5. Nutrition. 6. GI evaluation. 7. Close followup. Annia Julien MD Subjective Constitutional: Reports: no symptoms HEENT: Reports: no symptoms Cardiovascular: Reports: no symptoms Respiratory: Reports: no symptoms Gastrointestinal/Abdominal: Reports: no symptoms Genitourinary: Reports: no symptoms Neurologic/Psychiatric: Reports: no symptoms Endocrine: Reports: no symptoms Hematologic/Lymphatic: Reports: no symptoms Allergies: Coded Allergies: NO KNOWN DRUG ALLERGIES (Unverified Allergy, Unknown, 04/03/15) Objective Last 24 Hour Vital Signs Date Time Temp Pulse Resp B/P Pulse Ox O2 Delivery O2 Flow Rate FiO2 10/19/16 20:00 97.7 88 19 144/79 98 Room Air 10/19/16 16:22 97.9 64 18 138/69 100 Room Air 10/19/16 12:00 97.0 79 18 120/69 98 Room Air 10/19/16 08:20 85 112/82 10/19/16 08:00 97.0 85 20 112/72 99 Room Air 10/19/16 04:00 97.5 66 19 156/85 100 Room Air 10/19/16 00:46 97.9 71 18 152/77 97 Room Air Intake and Output 10/18/16 10/19/16 19:00 07:00 Intake Total 1000 ml 1075 ml Output Total 2 ml Balance 998 ml 1075 ml Intake Oral 400 ml 600 ml IV Total 600 ml 475 ml Output Urine Total 2 ml # Voids 5 Laboratory Tests 10/19/16 06:40: White Blood Count 3.6L, Red Blood Count 3.33L, Hemoglobin 10.7L, Hematocrit 33.6L, Mean Corpuscular Volume 101H, Mean Corpuscular Hemoglobin 32.0H, Mean Corpuscular Hemoglobin Concent 31.8L, Red Cell Distribution Width 12.8, Platelet Count 225, Mean Platelet Volume 6.9, Neutrophils (%) (Auto) 47.1, Lymphocytes (%) (Auto) 37.2, Monocytes (%) (Auto) 12.0H, Eosinophils (%) (Auto) 2.0, Basophils (%) (Auto) 1.7, Sodium Level 142, Potassium Level 3.8, Chloride Level 102, Carbon Dioxide Level 25, Anion Gap 15, Blood Urea Nitrogen 25H, Creatinine 1.2H, Estimat Glomerular Filtration Rate , Glucose Level 93, Calcium Level 9.1, CA 125 Antigen [Pending] Height (Feet): 5 Height (Inches): 3.00 Weight (Pounds): 91 General Appearance: alert Neck: non-tender Cardiovascular: regular rhythm Respiratory/Chest: lungs clear Abdomen: soft Extremities: non-tender Edema: no edema noted Arm (L), no edema noted Arm (R), no edema noted Leg (L), no edema noted Leg (R), no edema noted Pedal (L), no edema noted Pedal (R), no edema noted Generalized Edema: mild edema Neurologic: abnormal gait Skin: warm/dry Lymphatic: normal anterior cervical (L), normal anterior cervical (R), normal axillary (L), normal axillary (R), normal inguinal (L), normal inguinal (R), normal other, normal posterior cervical (L), normal posterior cervical (R), normal submandibular (L), normal submandibular (R), normal supraclavicular (L), normal supraclavicular (R) ANNIA JULIEN Oct 19, 2016 22:53
[2016-10-20] VITALS: BP 140/78
[2016-10-20 04:00] VITALS: BP 139/82
[2016-10-20 06:29] LABS: BASOPHILS % (AUTO) 1.6 % (0.0-2.0); EOSINOPHILS % (AUTO) 2.5 % (0.0-3.0); MEAN CORPUSCULAR HEMOGLOBIN 32.3 PG (27.0-31.0); MEAN CORPUSCULAR HGB CONC 32.3 G/DL (32.0-36.0); MEAN CORPUSCULAR VOLUME 100 FL (80-99); MEAN PLATELET VOLUME 7.7 FL (6.5-10.1); MONOCYTES % (AUTO) 10.1 % (1.0-10.0); NEUTROPHILS % (AUTO) 47.8 % (45.0-75.0); PLATELET COUNT 233 K/UL (150-450); RED BLOOD COUNT 3.28 M/UL (4.20-5.40); RED CELL DISTRIBUTION WIDTH 13.1 % (11.6-14.8); WHITE BLOOD COUNT 3.9 K/UL (4.8-10.8)
[2016-10-20 06:58] LABS: ANION GAP 15 (5-15); CARBON DIOXIDE 27 mEQ/L (20-30); CHLORIDE 101 mEQ/L (98-107); CREATININE 1.2 mg/dL (0.5-0.9); HEMOLYSIS 8; POTASSIUM 4.2 mEQ/L (3.4-4.9); SODIUM 143 mEQ/L (135-145)
[2016-10-20 08:00] VITALS: BP 134/74
[2016-10-20] MEDS: Meclizine 25mg tab ORAL SCH ×3 (08:42→18:00)
[2016-10-20] MEDS: Heparin 5000 units/ml inj SUBQ SCH (08:47)
[2016-10-20 10:13] LABS: A/G RATIO 1.5 (0.7-1.7); ABNORMAL PROTEIN BAND 1 Not Observed g/dL (Not Observed); ALBUMIN 3.9 g/dL (2.9-4.4); ALPHA-1 GLOBULIN 0.2 g/dL (0.0-0.4); ALPHA-2 GLOBULIN 0.8 g/dL (0.4-1.0); BETA GLOBULIN 0.9 g/dL (0.7-1.3); GAMMA GLOBULIN 0.7 g/dL (0.4-1.8); GLOBULIN, TOTAL 2.6 g/dL (2.2-3.9); TOTAL PROTEIN 6.5 g/dL (6.0-8.5)
--- NOTE | 2016-10-20 10:39 | General Progress Note ---
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 and heme /onc no bleeding reviewed chart and labs Subjective ROS Limited/Unobtainable: Yes Constitutional: Reports: no symptoms Allergies: Coded Allergies: NO KNOWN DRUG ALLERGIES (Unverified Allergy, Unknown, 04/03/15) Objective Last 24 Hour Vital Signs Date Time Temp Pulse Resp B/P Pulse Ox O2 Delivery O2 Flow Rate FiO2 10/20/16 08:43 87 139/82 10/20/16 08:00 97.0 82 18 134/74 99 Room Air 10/20/16 04:00 98.1 87 16 139/82 98 Room Air 10/20/16 00:00 97.5 82 18 140/78 99 Room Air 10/19/16 20:00 97.7 88 19 144/79 98 Room Air 10/19/16 16:22 97.9 64 18 138/69 100 Room Air 10/19/16 12:00 97.0 79 18 120/69 98 Room Air Intake and Output 10/19/16 10/20/16 19:00 07:00 Intake Total 690 ml 950 ml Balance 690 ml 950 ml Intake Oral 240 ml 300 ml IV Total 450 ml 650 ml # Voids 5 Laboratory Tests 10/20/16 05:35: White Blood Count 3.9L, Red Blood Count 3.28L, Hemoglobin 10.6L, Hematocrit 32.9L, Mean Corpuscular Volume 100H, Mean Corpuscular Hemoglobin 32.3H, Mean Corpuscular Hemoglobin Concent 32.3, Red Cell Distribution Width 13.1, Platelet Count 233, Mean Platelet Volume 7.7, Neutrophils (%) (Auto) 47.8, Lymphocytes (% ) (Auto) 38.0, Monocytes (%) (Auto) 10.1H, Eosinophils (%) (Auto) 2.5, Basophils (%) (Auto) 1.6, Sodium Level 143, Potassium Level 4.2, Chloride Level 101, Carbon Dioxide Level 27, Anion Gap 15, Blood Urea Nitrogen 29H, Creatinine 1.2H, Estimat Glomerular Filtration Rate , Glucose Level 92, Calcium Level 9.0 Height (Feet): 5 Height (Inches): 3.00 Weight (Pounds): 91 EENT: PERRL/EOMI Cardiovascular: normal rate Respiratory/Chest: lungs clear Abdomen: soft Trae Gregg MD Oct 20, 2016 10:39
[2016-10-20 12:34] VITALS: BP 145/56
--- NOTE | 2016-10-20 12:53 | General Progress Note ---
Assessment/Plan Assessment/Plan IMPRESSION: 1. Leukopenia, multifactorial. Hepatitis and HIV ordered for tomorrow Am 2. Anemia of chronic disease. Ferritin before 175 and TIBC was low 3. Decreased hemoglobin and hematocrit, rule out gastrointestinal bleed. 4. Headache. 5. History of brain abscesses, craniotomy. 6. Neuropathy. 7. Dementia. 8. Generalized weakness. 9. 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 RECOMMENDATIONS: 1. Watch count. 2. Watch coagulopathy. 3. CT scan of abdomen and pelvic with and without contrast pending 4. Hgb goal is >7, wbc goal >2k 5. Nutrition. 6. GI evaluation. 7. Close followup. Staff, Jassi Julien MD Subjective Constitutional: Reports: no symptoms HEENT: Reports: no symptoms Cardiovascular: Reports: no symptoms Respiratory: Reports: no symptoms Gastrointestinal/Abdominal: Reports: no symptoms Genitourinary: Reports: no symptoms Neurologic/Psychiatric: Reports: no symptoms Endocrine: Reports: no symptoms Hematologic/Lymphatic: Reports: anemia Allergies: Coded Allergies: NO KNOWN DRUG ALLERGIES (Unverified Allergy, Unknown, 04/03/15) Subjective Welsh speaking only, no complaints per RN, no fevers or chills Objective Last 24 Hour Vital Signs Date Time Temp Pulse Resp B/P Pulse Ox O2 Delivery O2 Flow Rate FiO2 10/20/16 12:34 97.0 72 18 145/56 97 Room Air 10/20/16 08:43 87 139/82 10/20/16 08:00 97.0 82 18 134/74 99 Room Air 10/20/16 04:00 98.1 87 16 139/82 98 Room Air 10/20/16 00:00 97.5 82 18 140/78 99 Room Air 10/19/16 20:00 97.7 88 19 144/79 98 Room Air 10/19/16 16:22 97.9 64 18 138/69 100 Room Air Intake and Output 10/19/16 10/20/16 19:00 07:00 Intake Total 690 ml 950 ml Balance 690 ml 950 ml Intake Oral 240 ml 300 ml IV Total 450 ml 650 ml # Voids 5 Laboratory Tests 10/20/16 05:35: White Blood Count 3.9L, Red Blood Count 3.28L, Hemoglobin 10.6L, Hematocrit 32.9L, Mean Corpuscular Volume 100H, Mean Corpuscular Hemoglobin 32.3H, Mean Corpuscular Hemoglobin Concent 32.3, Red Cell Distribution Width 13.1, Platelet Count 233, Mean Platelet Volume 7.7, Neutrophils (%) (Auto) 47.8, Lymphocytes (% ) (Auto) 38.0, Monocytes (%) (Auto) 10.1H, Eosinophils (%) (Auto) 2.5, Basophils (%) (Auto) 1.6, Sodium Level 143, Potassium Level 4.2, Chloride Level 101, Carbon Dioxide Level 27, Anion Gap 15, Blood Urea Nitrogen 29H, Creatinine 1.2H, Estimat Glomerular Filtration Rate , Glucose Level 92, Calcium Level 9.0 Height (Feet): 5 Height (Inches): 3.00 Weight (Pounds): 91 General Appearance: no apparent distress EENT: TMs normal Neck: supple Cardiovascular: regular rhythm Respiratory/Chest: normal breath sounds Abdomen: soft Extremities: non-tender Edema: 1+ Leg (L), 1+ Leg (R) Edema: mild edema Neurologic: alert Skin: warm/dry Jassi Julien Oct 20, 2016 12:53
[2016-10-20 14:16] LABS: VITAMIN D 25-OH TOTAL 13 ng/mL (.)
--- NOTE | 2016-10-20 15:28 | Pulmonology Progress Note ---
Assessment/Plan Problems: (1) Ovarian mass (2) ACS (acute coronary syndrome) (3) Hypertension (4) Headache (5) Dehydration Assessment/Plan all notes and orders, labs reviewed no new complains headache better. d/w pts daughter, they were told previously that she has some malignancy but she is too old for any surgery. Subjective Interval Events: d/w daughter, who wants to take the pt home Allergies: Coded Allergies: NO KNOWN DRUG ALLERGIES (Unverified Allergy, Unknown, 04/03/15) Objective Last 24 Hour Vital Signs Date Time Temp Pulse Resp B/P Pulse Ox O2 Delivery O2 Flow Rate FiO2 10/20/16 12:34 97.0 72 18 145/56 97 Room Air 10/20/16 08:43 87 139/82 10/20/16 08:00 97.0 82 18 134/74 99 Room Air 10/20/16 04:00 98.1 87 16 139/82 98 Room Air 10/20/16 00:00 97.5 82 18 140/78 99 Room Air 10/19/16 20:00 97.7 88 19 144/79 98 Room Air 10/19/16 16:22 97.9 64 18 138/69 100 Room Air Intake and Output 10/19/16 10/20/16 19:00 07:00 Intake Total 690 ml 950 ml Balance 690 ml 950 ml Intake Oral 240 ml 300 ml IV Total 450 ml 650 ml # Voids 5 General Appearance: WD/WN HEENT: normocephalic, atraumatic Respiratory/Chest: chest wall non-tender, normal breath sounds Cardiovascular: normal peripheral pulses, normal rate Abdomen: normal bowel sounds, soft, non tender Extremities: no cyanosis Skin: no rash, no lesions Neurologic/Psychiatric: car ferrier II-XII grossly normal Lymphatic: no groin adenopathy Musculoskeletal: normal muscle bulk Laboratory Tests 10/20/16 05:35: White Blood Count 3.9L, Red Blood Count 3.28L, Hemoglobin 10.6L, Hematocrit 32.9L, Mean Corpuscular Volume 100H, Mean Corpuscular Hemoglobin 32.3H, Mean Corpuscular Hemoglobin Concent 32.3, Red Cell Distribution Width 13.1, Platelet Count 233, Mean Platelet Volume 7.7, Neutrophils (%) (Auto) 47.8, Lymphocytes (% ) (Auto) 38.0, Monocytes (%) (Auto) 10.1H, Eosinophils (%) (Auto) 2.5, Basophils (%) (Auto) 1.6, Sodium Level 143, Potassium Level 4.2, Chloride Level 101, Carbon Dioxide Level 27, Anion Gap 15, Blood Urea Nitrogen 29H, Creatinine 1.2H, Estimat Glomerular Filtration Rate , Glucose Level 92, Calcium Level 9.0 Current Medications Medications (Trade) Dose Ordered Sig/Micheline Route PRN Reason Start Time Stop Time Status Last Admin Dose Admin Acetaminophen (Tylenol) 650 mg Q4H PRN ORAL fever 10/15/16 23:00 11/14/16 22:59 Al Hydroxide/Mg Hydroxide (Mylanta II) 30 ml Q6H PRN ORAL dyspepsia 10/15/16 23:00 11/14/16 22:59 Albuterol/ Ipratropium (DuoNeb 0.5-3(2.5)mg/3ml) 3 ml EVERY 4 HOURS PRN HHN Shortness of Breath 10/15/16 23:00 10/20/16 22:59 Amlodipine Besylate (Norvasc) 5 mg DAILY ORAL 10/16/16 09:00 11/15/16 08:59 10/20/16 08:43 Atorvastatin Calcium 10 mg 10 mg BEDTIME ORAL 10/17/16 21:00 11/16/16 20:59 10/19/16 21:01 Clonidine HCl (Catapres) 0.1 mg Q4H PRN ORAL For High Blood Pressure 10/15/16 23:00 11/14/16 22:59 Cyclobenzaprine HCl (Flexeril) 10 mg BEDTIME ORAL 10/16/16 21:00 11/15/16 20:59 10/19/16 21:00 Dextrose (Dextrose 50%) STAT PRN IV Hypoglycemia 10/15/16 23:00 11/14/16 22:59 Dextrose/Sodium Chloride (D5 0.45% NS) 1,000 ml @ 50 mls/hr Q20H IV 10/17/16 11:30 11/16/16 11:29 10/19/16 03:30 Heparin Sodium (Porcine) (Heparin 5000 units/ml) 5,000 units EVERY 12 HOURS SUBQ 10/16/16 09:00 11/15/16 08:59 10/20/16 08:47 Lorazepam (Ativan 2mg/ml 1ml) 0.5 mg Q4H PRN IV For Anxiety 10/15/16 23:00 10/22/16 22:59 Meclizine HCl (Antivert) 25 mg THREE TIMES A DAY ORAL 10/16/16 09:00 11/15/16 08:59 10/20/16 08:42 Morphine Sulfate (Morphine Sulfate) 1 mg EVERY 4 HOURS PRN IVP For Pain 7-10 10/15/16 23:00 10/22/16 22:59 10/17/16 08:59 Nitroglycerin (Ntg) 0.4 mg Q5M X 3 DOSES PRN SL Prn Chest Pain 10/15/16 23:00 11/14/16 22:59 Ondansetron HCl (Zofran) 4 mg Q6H PRN IVP Nausea & Vomiting 10/15/16 23:00 11/14/16 22:59 Polyethylene Glycol (Miralax) 17 gm HSPRN PRN ORAL Constipation 10/15/16 23:00 11/14/16 22:59 10/19/16 21:01 Promethazine HCl/ Codeine (Phenergan with Codeine) 5 ml Q4H PRN ORAL For Cough 10/15/16 23:00 11/14/16 22:59 Temazepam (Restoril) 15 mg HSPRN PRN ORAL Insomnia 10/15/16 23:00 10/22/16 22:59 DUSTIN RODRIGUEZ Oct 20, 2016 15:28
[2016-10-20 16:20] VITALS: BP 164/86
[2016-10-20] MEDS ORDERED: ACETAMINOPHEN325 M3 PO (17:56)
[2016-10-20] MEDS ORDERED: MYLANTA II30 ML ORAL (17:58)
[2016-10-20] MEDS ORDERED: AMLODIPINE BESYL5 MG ORAL ×2 (18:00→18:42)
[2016-10-20] MEDS ORDERED: ATORVASTATIN CA20 MG ORAL (18:02)
[2016-10-20] MEDS ORDERED: CLONIDINE0.1 MG GT (18:03)
[2016-10-20 18:05] VITALS: BP 164/86
[2016-10-20] MEDS ORDERED: CYCLOBENZAPRINE10 MG ORAL (18:09)
[2016-10-20] MEDS ORDERED: PROMETHAZINE-C118 M1 ORAL (18:17)
[2016-10-20] MEDS ORDERED: HEPARIN SO5000 UNIT6 SQ (18:17)
[2016-10-20] MEDS ORDERED: MECLIZINE HCL25 M1 ORAL (18:19)
[2016-10-20] MEDS ORDERED: IPRATROPIU0.2 MG/1 M HHN (18:19)
[2016-10-20] MEDS ORDERED: MORPHINE IV (18:20)
[2016-10-20] MEDS ORDERED: NITROGLYCERIN0.4 MG SL (18:21)
[2016-10-20] MEDS ORDERED: ZOFRAN4 M1 ORAL (18:22)
[2016-10-20] MEDS ORDERED: MIRALAX17 G2 ORAL (18:24)
[2016-10-20] MEDS ORDERED: TEMAZEPAM15 MG ORAL (18:24)
[2016-10-20] MEDS ORDERED: TYLENOL650 MG/20. ORAL (18:40)
[2016-10-20] MEDS ORDERED: CLONIDINE HCL0.1 MG PO (18:41)
[2016-10-20] MEDS ORDERED: HEPARIN SO5000 UNIT2 SUBQ (18:42)
[2016-10-20] MEDS ORDERED: TYLENOL EXTRA500 MG ORAL (18:47)
[2016-10-20] MEDS ORDERED: D5 1/2NS 1000ml IV ONE (18:49)
[2016-10-21] MEDS ORDERED: VITAMIN D250000 UNI1 ORAL (09:52)
--- NOTE | 2016-10-21 10:08 | Discharge Summary ---
Discharge Summary Hospital Course Date of Admission Oct 15, 2016 at 23:01 Date of Discharge Oct 20, 2016 at 18:50 Admitting Diagnosis generalized weakness, headache HPI Maurizio Johnson is a 86 year old female who was admitted on Oct 15, 2016 at 23:01 for Generalized Weakness,Headache Hospital Course dc summary #[id number] Discharge Medications New Medications: Ergocalciferol (Vitamin D2)* (Vitamin D*) 50,000 Unit Capsule [id number] UNIT ORAL ONCE A WEEK, #4 CAP Continued Medications: Acetaminophen* (Tylenol Extra Strength*) 500 Mg Tablet 650 MG ORAL EVERY 4 HOURS PRN for Fever/Headache/Mild Pain, TAB 0 Refills Al Hydroxide/mg Hydroxide (Mag-Al Plus Suspension) 30 Ml Oral.susp 30 ML ORAL, ML Amlodipine Besylate* (Amlodipine Besylate*) 5 Mg Tablet 5 MG ORAL DAILY, TAB Atorvastatin Calcium* (Lipitor*) 10 Mg Tablet Unknown Dose ORAL BEDTIME, TAB Clonidine Hcl (Clonidine Hcl) 0.1 Mg Tablet 0.1 MG PO EVERY 4 HOURS for For High Blood Pressure, TAB Codeine/Promethazine Hcl* (Promethazine-Codeine Syrup*) 118 Ml Syrup 5 ML ORAL Q4H PRN for For Cough, ML 0 Refills Cyclobenzaprine Hcl* (Flexeril*) 10 Mg Tablet 10 MG ORAL BEDTIME PRN for Insomnia, TAB Heparin Sod (Porcine) (Heparin Sodium*) 5 000/1 Ml Vial 5000 UNITS SUBQ EVERY 12 HOURS, VIAL Ipratropium [place] 0.5MG/2.5ML (Ipratropium [place] 0.5MG/2.5ML) 0.2 Mg/1 Ml Solution 0.5 MG HHN Q4HR PRN for Shortness of Breath, #28 EA Meclizine Hcl (Meclizine Hcl) 25 Mg Tab.chew 25 MG ORAL THREE TIMES A DAY, TAB Morphine Sulfate/0.9% NaCl/Pf (Morphine 2 mg/2 ml-0.9% NaCl) 2 Mg/2 Ml Syringe 2 MG IV EVERY 4 HOURS for Pain Scale (6-10) Nitroglycerin (Nitroglycerin) 0.4 Mg Tab.subl 0.4 MG SL, TAB Ondansetron (Zofran) 4 Mg Tablet 4 MG ORAL Q6H PRN for Nausea & Vomiting, TAB Polyethylene Glycol 3350* (Miralax*) 17 Gm Powd.pack 17 GM ORAL DAILY, PACKET Temazepam (Temazepam*) 15 Mg Capsule 15 MG ORAL BEDTIME, #30 CAP 0 Refills Discontinued Medications: Acetaminophen (Acetaminophen) 500 Mg/5 Ml Liquid 500 MG ORAL, ML Acetaminophen (Acetaminophen) 650 Mg/20.3 Ml Solution 650 MG ORAL Q6H PRN for Fever/Headache/Mild Pain, ML 0 Refills Amlodipine Besylate (Norvasc) 2.5 Mg Tablet Unknown Dose ORAL DAILY, TAB Aspirin (Aspirin) 81 Mg Tab.chew 81 MG PO, TAB Dicyclomine Hcl* (Bentyl*) 10 Mg Capsule Unknown Dose ORAL FOUR TIMES A DAY, CAP Docusate Sodium* (Docusate Sodium*) 250 Mg Capsule 250 MG ORAL TWICE A DAY, CAP Donepezil Hcl* (Aricept*) 5 Mg Tablet Unknown Dose ORAL DAILY, TAB Furosemide* (Lasix*) 20 Mg Tablet 20 MG ORAL DAILY, TAB Gabapentin* (Gabapentin*) 300 Mg Capsule 300 MG ORAL DAILY, CAP Gabapentin* (Gabapentin*) 100 Mg Capsule Unknown Dose ORAL THREE TIMES A DAY, CAP Losartan Potassium* (Cozaar*) 25 Mg Tablet Unknown Dose ORAL DAILY, TAB Losartan Potassium* (Cozaar*) 50 Mg Tablet 50 MG ORAL, TAB Meclizine Hcl* (Meclizine*) 25 Mg Tablet 25 MG ORAL THREE TIMES A DAY, TAB Nebivolol Hcl* (Bystolic*) 2.5 Mg Tablet 5 MG ORAL DAILY, TAB Ondansetron Hcl* (Zofran*) 8 Mg Tablet 8 MG ORAL Q6H PRN for Nausea & Vomiting, #4 TAB 0 Refills Pregabalin* (Lyrica*) 75 Mg Capsule Unknown Dose ORAL THREE TIMES A DAY, CAP Sennosides* (Senno*) 8.6 Mg Tablet 8.6 MG ORAL DAILY, TAB Solifenacin Succinate* (Vesicare*) 5 Mg Tablet 5 MG ORAL DAILY, TAB Tramadol Hcl* (Ultram*) 50 Mg Tablet Unknown Dose ORAL Q6H PRN for For Pain, #30 TAB 0 Refills Travoprost (Travatan Z) 5 Ml Drops 5 ML OP, ML Zolpidem Tartrate* (Ambien*) 5 Mg Tablet 2.5 MG ORAL BEDTIME PRN for Insomnia, TAB Discharge Condition Upon Discharge: stable Discharge Disposition Patient was discharged to SNF/Subacute Facility(03) Discharge Diagnoses: Ismael ([facility]),Lisa ESCOTO Oct 21, 2016 10:08
--- NOTE | 2016-10-21 11:48 | Cardiology Report ---
APPROVED REPORT EKG Measurement Heart [id number] Normal sinus rhythm Septal infarct, age undetermined Abnormal ECG
--- NOTE | 2016-10-21 13:59 | Cardiology Report ---
APPROVED REPORT EXAM: Two-dimensional and M-mode echocardiogram with Doppler and color Doppler. INDICATION Left ventricular function M-Mode DIMENSIONS IVSd0.9 (0.7-1.1cm)Left Atrium (MM)3.8 (1.6-4.0cm) LVDd3.3 (3.5-5.6cm)Aortic Root2.5 (2.0-3.7cm) PWd0.8 (0.7-1.1cm)Aortic Cusp Exc.1.5 (1.5-2.0cm) LVDs1.8 (2.5-4.0cm) PWs0.7 cm Normal left ventricular chamber size, systolic function and wall motion. Left ventricular ejection fraction estimated to be 60-65 %. Mild left ventricular hypertrophy. No evidence of pericardial fat or effusion. Mild left atrial enlargement by 2D. Right cardiac chamber sizes are within normal limits. Focal aortic valve sclerosis with adequate cusp excursion Thickened mitral valve leaflets with normal excursion. Mild mitral annulus and aortic root calcification. Pulmonic valve not well visualized. Normal tricuspid valve structure. IVC is normal in size with physiologic collapse. A color flow and spectral Doppler study was performed and revealed: Moderate aortic regurgitation. Moderate mitral regurgitation. Left ventricular diastolic dysfunction grade 1. Moderate tricuspid regurgitation. Tricuspid systolic velocities suggests peak right ventricular systolic pressure of 31 mmHg
--- NOTE | 2016-10-21 19:39 | History and Physical Report ---
DATE OF ADMISSION: 10/15/2016 HISTORY OF PRESENT ILLNESS: The patient is admitted for recent history of generalized headache and generalized weakness. The patient is a poor historian. The patient also has increased headache and generalized weakness. Denies any recent trauma. Denies nausea, vomiting, or diarrhea. She did have some cough. PAST MEDICAL HISTORY: History of hypertension, neuropathy, history of dizziness, history of brain tumor a long time ago, constipation, glaucoma, insomnia, dementia, neuropathy, and hyperlipidemia. PAST SURGICAL HISTORY: Brain tumor removed. MEDICATIONS: Amlodipine, aspirin, Lipitor, benazepril, Lasix, gabapentin, losartan, Bystolic, Lyrica, Senokot. ALLERGIES: No known drug allergies. FAMILY HISTORY: Noncontributory. SOCIAL HISTORY: Denies smoking, alcohol or illicit drugs. REVIEW OF SYSTEMS: HEENT: She does have headache. Denies diplopia. Respiratory: Denies shortness of breath, but does have some cough. Cardiovascular: Denies chest pain. Denies orthopnea. Gastrointestinal: Denies nausea, vomiting or diarrhea. Extremities: Does have chronic pain syndrome. Central Nervous System: Denies changes in vision or speech pattern. Has neuropathy. She is a poor historian. PHYSICAL EXAMINATION: VITAL SIGNS: Temperature is 97 degrees, pulse is 61, and blood pressure 163/74. HEENT: PERRLA. NECK: Supple. No lymphadenopathy. CHEST: Clear to auscultation. GASTROINTESTINAL: Soft, nontender and nondistended. No organomegaly. EXTREMITIES: No edema. NEUROLOGIC: Reflexes are equal on both sides. Moves all four extremities. LABORATORY AND DIAGNOSTIC DATA: WBC is 4.8, hemoglobin 10, hematocrit of . Sodium 145, potassium 4.2, BUN 29, and creatinine 1.2. Glucose of 96. . ASSESSMENT AND PLAN: 1. Generalized weakness, neuropathy, and headache. 2. Azotemia. 3. History of brain tumor. 4. Dizziness. I have asked Dr. Garza, Dr. Esquivel, Dr. Hutton, and Dr. Norris to see the patient for the cough and above-mentioned diagnosis and treatment. Trae Gregg M.D. DR: JASEN JOB#: [id number] CC:
--- NOTE | 2016-10-21 21:49 | Progress Note ---
DATE: 10/20/2016 SUBJECTIVE: The patient's cognition is much improved. She is still presenting with mild cognitive impairment and impairment with concentration, memory and attention. However, there has not been any agitation. No behavior issues. MENTAL STATUS EXAMINATION: The patient is alert and oriented to time, self, and place. Mood is neutral. Affect is constricted. Congruent mood. Thought process is concrete. Thought content, no suicidal, or homicidal ideation. ASSESSMENT: 1. Cognitive impairment. 2. Altered mental status. PLAN: 1. The patient will be continued with current medication. 2. Provide the patient with supportive therapy and reality orientation. Jet Garza M.D. DR: PRIYANKA JOB#: [id number] CC:
--- NOTE | 2016-10-21 23:30 | Diagnostic Imaging Report ---
APPROVED REPORT CPT Code: 75630 Vascular Symptoms CVA/TIA: Doppler Spectral Velocity Analysis RightLeft RIGHT SIDE: CCA - Imaging reveals no significant plaque in the common carotid artery. ICA arteries. The Doppler signal indicates the degree of stenosis is minimal (20%) in the internal carotid, and mild (40%) external carotid arteries. VERTEBRAL - The vertebral artery is patent, without evidence of stenosis or steal. carotid arteries. ECA - Imaging reveals irregular plaque in the external carotid artery. The Doppler signal indicates the degree of stenosis is mild (30%) in the external carotid artery. VERTEBRAL - The vertebral artery is patent, without evidence of stenosis or steal.
--- NOTE | 2016-10-21 23:31 | Diagnostic Imaging Report ---
APPROVED REPORT CPT Code: 22241 Present Symptoms Lower Extremity Pain: Left BILATERAL: Imaging reveals a patent deep venous system bilaterally. There is no evidence of thrombus within the femoral, popliteal or tibial segments. The greater saphenous veins are also within normal limits. Doppler indicates normal spontaneous flow within these segments.
--- NOTE | 2016-10-21 23:49 | Discharge Summary 2 SIG ---
DATE OF ADMISSION: 10/15/2016 DATE OF DISCHARGE: 10/20/2016 REASON FOR ADMISSION: 86-year-old female presented to the emergency department after having headaches and increased generalized weakness. The patient denied recent trauma or head injury. She reported increased facial pain and cough. 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 Workup in the emergency room revealed no leukocytosis. Mild anemia with hemoglobin of 10.1. Hematocrit 31.4. Electrolytes were stable. Evidence of renal insufficiency with BUN of 29 and creatinine 1.6. Lactic acid within normal limits. LFTs stable. Troponin negative. The urinalysis showed no evidence of urinary tract infection. EKG demonstrated normal sinus rhythm. No acute changes. Chest x-ray revealed no acute cardiopulmonary disease. Blood pressure was 180/90. CT of the head revealed no acute intracranial pathology. ADMITTING DIAGNOSIS: Hypertensive urgency Generalized weakness. Acute kidney injury HOSPITAL STAY: Neurology consult was requested as well as the psych consult and hematology/ oncology consult. Neurologist initiated a workup for treatable causes of neuropathy which revealed a low vitamin D level , stable B12, TSH, and folate. Stable protein electrophoresis. The patient was started on vitamin D replacement. The patient was started on pain management as well as the muscle relaxant for muscle contraction headaches. Blood pressure medication were adjusted. The patient was working with physical and occupational therapists. Fall precaution maintained. Blood pressure improved with calcium channel syl. Lipid panel with elevated total cholesterol. Added low dose of Lipitor and changed diet to low-fat, low-cholesterol cardiac diet. The patient was on gentle IV fluids. Renal parameters and electrolytes were closely monitored. Creatinine was trending down. Acute renal failure possibly secondary to dehydration. Renal ultrasound revealed atrophic right kidney. Accidental finding of complex cystic mass in the right adnexal region with septation concerning for ovarian neoplasm. [employer] evaluation requested per PMD. Photo Editor seen the patient. Venous duplex bilateral lower extremities was negative. Psychiatrist followed. Psych medication were adjusted by psychiatrist. DVT prophylaxis provided. According to the daughter, they have been told that the patient had some kind of malignancy. The daughter refused further workup due to advanced age of her mother. Tumor markers revealed normal CA 19-9, elevated CEA, CA-125 pending. The patient was discharged to half-way facility. DISCHARGE DIAGNOSES: 1. 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 2. Muscle contraction headaches. 3. Hypertensive urgency, resolved. 4. History of brain tumor/abscess with craniotomy. 5. Neuropathy. 6. Dementia. 7. Acute kidney injury on chronic renal insufficiency ( likely due to dehydration) 8. Dehydration. 9. Vitamin D deficiency DISCHARGE MEDICATIONS: See medication reconciliation list. DISCHARGE INSTRUCTIONS: The patient was discharged to half-way facility. Trae Gregg M.D. Lisa NeumannCohen [facility] Centerjesus N.PJoanna DR: FRANK JOB#: [id number] CC: PAUL
== END 2016-10-20 18:50 | DRG 305 ==
LOC: EDBD 18:23 → EMR 18:55 → 3E 23:01 → EDBEDREQ 10-16 14:58 → 4W 10-17 08:22 → 3E 10-17 09:40
DX: I16.0 Hypertensive urgency (principal); G81.94 Hemiplegia, unspecified affecting left nondominant side; F03.90 Unspecified dementia, unspecified severity, without behavioral disturbance, psychotic disturbance, mood disturbance, and anxiety; E86.0 Dehydration; E55.9 Vitamin D deficiency, unspecified; D49.59 Neoplasm of unspecified behavior of other genitourinary organ; I12.9 Hypertensive chronic kidney disease with stage 1 through stage 4 chronic kidney disease, or unspecified chronic kidney disease; G62.9 Polyneuropathy, unspecified; R51 Headache; N18.9 Chronic kidney disease, unspecified; F41.9 Anxiety disorder, unspecified; D50.9 Iron deficiency anemia, unspecified; E78.5 Hyperlipidemia, unspecified; H40.9 Unspecified glaucoma
CPT/HCPCS: 36415; 70450; 71010; 76775; 80048; 80053; 80061; 81003; 82306; 82378; 82550; 82553; 82607; 82746; 83036; 83605; 83880; 84165; 84443; 84484; 85007; 85025; 85610; 85651; 85730; 86301; 86304; 86592; 87040; 87081; 93005; 93306; 93880; 93970; 96372; 96374; 96375